=== PATIENT | male | born 1940 | race Caucasian/White ===

== ENCOUNTER → 2017-03-26 | Outpatient (CLI) | payer MEDICARE, BC ==
[~2017-03-26] MED LIST: FISH100020 PO; FLAX10002 PO; MONT10TA4 PO; MULT-65 PO; TAB-TAB PO
[2017-03-26 11:31] LABS: AUTOMATED NEUTROPHIL # 7.9 TH/MM3 (1.8-7.7); BASOPHIL # 0.4 TH/MM3 (0-0.2); BASOPHIL % 4.1 % (0.0-2.0); EOSINOPHIL # 0.2 TH/MM3 (0-0.4); EOSINOPHIL % 2.3 % (0.0-4.0); HEMATOCRIT 49.2 % (39.0-51.0); HEMOGLOBIN 16.2 GM/DL (13.0-17.0); LYMPH % 12.3 % (9.0-44.0); LYMPHOCYTE # 1.3 TH/MM3 (1.0-4.8); MEAN CELL VOLUME 92.2 FL (80.0-100.0); MEAN CORPUSCULAR HEMOGLOBIN 30.4 PG (27.0-34.0); MEAN PLATELET VOLUME 9.2 FL (7.0-11.0); MONO % 9.6 % (0.0-8.0); NEUT % 71.7 % (16.0-70.0); PLATELET COUNT 306 TH/MM3 (150-450); RED BLOOD COUNT 5.34 MIL/MM3 (4.50-5.90); RED CELL DISTRIBUTION WIDTH 13.1 % (11.6-17.2); WHITE BLOOD COUNT 10.8 TH/MM3 (4.0-11.0)
== END ==
LOC: PHPRE 10:16
PROVIDERS: ATTEND Ophthalmology
DX: Z01.812 Encounter for preprocedural laboratory examination (principal); H25.89 Other age-related cataract
CPT/HCPCS: 36415; 85025

== ENCOUNTER → 2017-04-02 | Day surgery (SDC) | payer MEDICARE, BC ==
--- NOTE | 2017-03-26 15:14 | MH ---
cc: [facility], NICOLASA BLACK DATE OF ADMISSION: 04/02/2017 ADMISSION DIAGNOSIS Cataract, right eye. HISTORY OF PRESENT ILLNESS This 76-year-old white male is coming through [facility] for the purpose of a lens extraction of the right eye with intraocular lens implant under local anesthesia. He has noted decreasing visual acuity interfering with his daily activities and elected to have the above procedure. He is referred for consideration by his retinal specialist, Dr. Vincent, who is following him for macular degeneration. PAST MEDICAL HISTORY The patient has a history of allergies, shortness of breath which may be asthma, COPD and bronchitis. PAST SURGICAL HISTORY 1. Tonsillectomy. 2. Tympanoplasty. 3. Splenectomy. 4. Hernia repair. 5. Left groin surgery. MEDICATIONS The daily medications include: 1. Multivitamins. 2. Prostate supplement. 3. Vision . 4. Fish oil. 5. Claritin p.r.n. 6. Theophylline, which was discontinued. 7. Singulair. ALLERGIES No known allergies. SOCIAL HISTORY Does not smoke, and rare to occasionally has a beer every few months. FAMILY HISTORY Noncontributory. REVIEW OF SYSTEMS HEAD: Patient denies severe headaches, dizziness or recent head injury. EARS: Patient denies hearing loss, ear pain, discharge or ringing in the ears. NOSE: The patient sometimes has nasal discharge due to postnasal drip from allergies. No obstruction or frequent colds. MOUTH AND THROAT: Patient denies soreness of the mouth or tongue, bleeding gums, trouble swallowing, changes in voice or sore throat. NECK: Patient denies neck pain or swelling, limitation of neck movement or neck injury. CARDIOPULMONARY SYSTEM: He has some shortness of breath on exertion, COPD with bronchitis. No chronic cough, sputum production, hemoptysis, chest pain, wheezing, palpitations or light-headedness. GI SYSTEM: Patient denies poor appetite, nausea, vomiting, abdominal pain, ulcers, hemorrhoids or change in bowel habits. SYSTEM: He has an enlarged prostate with urinary frequency of every 2-4 hours, and gets up at night frequently to urinate. The patient denies dysuria or change in urine color. NERVOUS SYSTEM: Patient denies convulsions, vertigo, stroke, numbness or weakness. PHYSICAL EXAMINATION VITAL SIGNS: Blood pressure 106/52, pulse 72, respirations 24. HEAD: Normocephalic, atraumatic. NOSE: Without rhinorrhea. THROAT: Clear. NECK: Supple. CHEST: Clear. HEART: Regular rhythm. ABDOMEN: Without tenderness. EXTREMITIES: Without edema. NEUROLOGIC: Within normal limits. MENTAL STATUS: Within normal limits. EYE EXAM: The patient's best-corrected visual acuity is 20/50 in the right eye and 20/30 -2 in the left. Visual cordoba are full to confrontation testing. Extraocular muscle exam reveals full versions with orthophoria at distance and near. Pupils are 3 mm, equal, round and reactive to light without afferent defect. Anterior segment examination reveals corneal arcus. There are nuclear sclerotic and posterior cortical cataract changes bilaterally. The right eye has central cortical cataract change. Intraocular pressure is 17 in the right eye and 15 in the left by applanation tonometry. Dilated fundus exam revealed sharp disks with cup-to-disk ratio of 0.3 bilaterally. There are soft drusen in the macula of each eye. A posterior vitreous detachment is present bilaterally with some asteroid-like floaters in the right vitreous. IMPRESSION 1. Bilateral cataracts, right greater than left. 2. Dry macular degeneration, intermediate stage. 3. Posterior vitreous detachment, both eyes. 4. Corneal arcus. PLAN Lens extraction of the right eye with intraocular lens implant under local anesthesia through [facility]. The patient has been cleared medically. He has been counseled as to the risks, benefits and alternatives and elected to proceed. I feel that cataract surgery will improve the quality of life and activities of daily living in this patient. MD ARMANDO Diaz/MARISA /2:43 PM /2:57 PM
[~2017-04-02] VITALS: Ht 172.7 cm; Wt 69.0 kg
[~2017-04-02] MED LIST changes: +ACETYLCHOLINE CHL OPHT SOLN 1:100 2 ML VIAL ONE; +CHLORHEXIDINE GLUCONATE 2 % 1 PACK (2 CLOTHS) TOPICAL PRN; +EPINEPHrine HCL (1:1000) 1 MG/ML VIAL ONE; +HYALURONIDASE/LIDOCAINE/BUPIVACAINE 5 ML SYR RIGHT EYE ONE; +INSULIN HUMAN REGULAR 1,000 UNITS/10 ML VIAL SQ PRN; +LACTATED RINGER'S 1000 ML IV PRN; +METOPROLOL TARTRATE 25 MG TAB PO PRN; +PILOCARPINE HCL 2% OPHT SOLN 15 ML BTL ONE; +POVIDONE IODINE 5% (ANTISEPSIS KIT) 4 APPLICATIONS EACH NARE PRN; +PROPARACAINE HCL 0.5% OPHT SOLN 15 ML BTL RIGHT EYE ONE; +PROPOFOL 200 MG/20 ML AMP ONE; +SODIUM CHLORID 0.9% 500 ML IV PRN; -TAB-TAB PO; +TOBRAMYCIN/DEXAMETHASONE OPTH OINT 3.5 GM TUBE ONE; +VISCOAT OPHT IRRIG SOLN 0.75 ML SYRINGE ONE
[2017-04-02 10:15] VITALS: PULSE 78
[2017-04-02] MEDS: DICLOFENAC SOD 0.1% OPHT SOLN 2.5 ML BTL RIGHT EYE SCH ×8 (10:17→10:32)
[2017-04-02] MEDS: GATIFLOXACIN 0.5% OPHT SOLN 2.5 ML BTL RIGHT EYE SCH ×8 (10:17→10:32)
[2017-04-02] MEDS: CYCLOPENTOLATE HCL 1% OPHT SOLN 2 ML BTL RIGHT EYE SCH ×8 (10:17→10:32)
[2017-04-02] MEDS: PHENYLEPHRINE HCL 2.5% OPTH SOLN 2 ML BTL RIGHT EYE SCH ×8 (10:17→10:32)
[2017-04-02] MEDS: TROPICAMIDE 1% OPHT SOLN 15 ML BTL RIGHT EYE SCH ×8 (10:17→10:32)
[2017-04-02 10:49] VITALS: PULSE 75
[2017-04-02 12:55] VITALS: TEMP 98.1
[2017-04-02 13:10] VITALS: BP 120/69; PULSE 78; RESP 16; O2SAT 99
--- NOTE | 2017-04-02 13:29 | MP ---
cc: NICOLASA ACOSTA DATE OF SURGERY: April 02, 2017 PREOPERATIVE DIAGNOSIS: Cataract right eye. POSTOPERATIVE DIAGNOSIS: Cataract right eye. OPERATION: Extracapsular cataract extraction with posterior chamber intraocular lens implant by phacoemulsification, right eye. SURGEON: Nicolasa Acosta M.D. ANESTHESIA: Local. COMPLICATIONS: None. INDICATIONS: See history and physical previously dictated. OPERATIVE PROCEDURE: The patient had adequate retrobulbar and eyelid blocks administered in the holding area and was brought to the operating room. The right eye was prepped and draped in the usual sterile ophthalmic manner. A lid speculum was inserted in the right eye. A 4-0 silk bridle suture was placed through the conjunctiva near the superior rectus muscle and it was tagged to the drape. A fornix-based conjunctival flap was prepared spanning approximately 5 mm in width. Hemostasis was obtained with wet-field cautery. A 3.5 mm groove was made 1 mm from the limbus and dissected up to the limbus in the form of a scleral pocket incision. A stab incision was then made at the 2 o'clock position. Viscoelastic was injected into the anterior chamber. The anterior chamber was entered with a 2.75 mm keratome through the scleral pocket incision. A 360 degree continuous curvilinear capsulorrhexis was then performed. Hydrodissection was utilized to divide the nucleus into inner and outer components and to separate the cortex from the capsule. Phacoemulsification was then utilized to remove the nucleus. The outer nuclear layer was removed with irrigation and aspiration and short bursts of ultrasound as necessary. The cortex was removed with the irrigation/aspiration handpiece. The posterior capsule was polished with the capsule polisher. Viscoelastic was injected into the capsular bag. The intraocular lens was inspected and found to be in good condition. The lens utilized was an Porfirio, model number SA60AT with a power of +19.5 diopters. The lens was inserted into the capsular bag. The viscoelastic in the anterior chamber was then removed with the irrigation-aspiration handpiece. Viscoelastic was also removed from beneath the intraocular lens. The anterior chamber was filled with Miochol-E through the stab incision and pressurized. The wound was checked for leaks at this pressure and normalized pressure and there were none. The 4-0 bridle suture was removed. The conjunctival flap was brought down over the wound and secured with cautery. Pilocarpine 2% eye drops were instilled topically. The lid speculum was removed. TobraDex ophthalmic ointment was applied. The eye was double patched and shielded. The patient tolerated the procedure well and left the Operating Room in satisfactory condition. MD ARMANDO Diaz/KVNG /1:09 PM /1:25 PM
== END | disposition home or self-care (01) ==
LOC: PHSDC 09:41
PROVIDERS: ATTEND Ophthalmology
DX: H25.811 Combined forms of age-related cataract, right eye (principal); H43.391 Other vitreous opacities, right eye; H43.813 Vitreous degeneration, bilateral; H35.319 Nonexudative age-related macular degeneration, unspecified eye; J44.9 Chronic obstructive pulmonary disease, unspecified
CPT/HCPCS: 00142; 66984; J0171; V2632

== ENCOUNTER 2017-06-26 13:19 | Inpatient (IN) | payer MEDICARE, BC ==
[2017-06-26] VITALS (8 sets, daily range): BP systolic 114–145; BP diastolic 59–89; PULSE 20–112; RESP 18–33; TEMP 98.3; O2SAT 95–98
[~2017-06-26] VITALS: Ht 172.7 cm; Wt 70.6 kg
[~2017-06-26 13:19] MED LIST changes: -ACETYLCHOLINE CHL OPHT SOLN 1:100 2 ML VIAL ONE; -CHLORHEXIDINE GLUCONATE 2 % 1 PACK (2 CLOTHS) TOPICAL PRN; -EPINEPHrine HCL (1:1000) 1 MG/ML VIAL ONE; -HYALURONIDASE/LIDOCAINE/BUPIVACAINE 5 ML SYR RIGHT EYE ONE; -INSULIN HUMAN REGULAR 1,000 UNITS/10 ML VIAL SQ PRN; -LACTATED RINGER'S 1000 ML IV PRN; -METOPROLOL TARTRATE 25 MG TAB PO PRN; -PILOCARPINE HCL 2% OPHT SOLN 15 ML BTL ONE; -POVIDONE IODINE 5% (ANTISEPSIS KIT) 4 APPLICATIONS EACH NARE PRN; -PROPARACAINE HCL 0.5% OPHT SOLN 15 ML BTL RIGHT EYE ONE; -PROPOFOL 200 MG/20 ML AMP ONE; -SODIUM CHLORID 0.9% 500 ML IV PRN; -TOBRAMYCIN/DEXAMETHASONE OPTH OINT 3.5 GM TUBE ONE; -VISCOAT OPHT IRRIG SOLN 0.75 ML SYRINGE ONE
--- NOTE | 2017-06-26 14:33 | RADRPT ---
EXAM DATE/TIME: 06/26/2017 14:00 [place] COMPARISON: No previous studies available for comparison. INDICATIONS : Shortness of breath with cough x3 weeks. MEDICAL HISTORY : None. SURGICAL HISTORY : None. ENCOUNTER: Initial ACUITY: 3 weeks PAIN SCORE: 0/10 LOCATION: Bilateral chest FINDINGS: Multiple primarily right-sided masslike parenchymal opacities. Cardiomediastinal contours are within normal limits. Bony thorax is intact. CONCLUSION: 1. Multiple primarily right-sided masslike parenchymal opacities. Differential considerations include metastatic disease versus atypical infection. Andriy Maier MD on June 26, 2017 at 14: 2. 28 Board Certified Radiologist. This report was verified electronically.
[2017-06-26 14:38] LABS: BASOPHIL % 0.1 % (0.0-2.0); HEMATOCRIT 49.9 % (39.0-51.0); HEMOGLOBIN 16.1 GM/DL (13.0-17.0); LYMPH % 3.3 % (9.0-44.0); LYMPHOCYTE # 1.1 TH/MM3 (1.0-4.8); MEAN CORPUSCULAR HGB CONC 32.3 % (32.0-36.0); MEAN PLATELET VOLUME 9.5 FL (7.0-11.0); MONO % 7.3 % (0.0-8.0); MONOCYTE # 2.3 TH/MM3 (0-0.9); NEUT % 89.3 % (16.0-70.0); PLATELET COUNT 388 TH/MM3 (150-450); RED BLOOD COUNT 5.36 MIL/MM3 (4.50-5.90); RED CELL DISTRIBUTION WIDTH 13.7 % (11.6-17.2); WHITE BLOOD COUNT 31.4 TH/MM3 (4.0-11.0)
[2017-06-26 14:45] LABS: INTERNATIONAL NORMALIZED RATIO 1.2 RATIO; PROTHROMBIN TIME - PATIENT 12.2 SEC (9.8-11.6)
[2017-06-26 15:04] LABS: BICARBONATE 30.4 MEQ/L (21.0-32.0); BLOOD UREA NITROGEN 17 MG/DL (7-18); CALCIUM 9.2 MG/DL (8.5-10.1); CHLORIDE 98 MEQ/L (98-107); CREATININE 0.79 MG/DL (0.60-1.30); GLOMERULAR FILTRATION RATE 95 ML/MIN (>89); GLUCOSE,RANDOM 110 MG/DL (74-106); MAGNESIUM 2.3 MG/DL (1.5-2.5); SODIUM (NA) 137 MEQ/L (136-145); TROPONIN I LESS THAN 0.02 NG/ML (0.02-0.05)
[2017-06-26 15:10] LABS: BANDS 1 % (0-6); LYMPHOCYTES 3 % (9-44); MONOCYTES 7 % (0-8); NEUTROPHIL # MANUAL DIFF 28.3 TH/MM3 (1.8-7.7); POLYS (SEG NEUTROPHILS) 89 % (16-70)
[2017-06-26 15:12] LABS: TOXIC GRANULATION 2+ (NORMAL); TOXIC VACUOLATION PRESENT (NONE SEEN)
[2017-06-26 15:13] LABS: HOWELL-JOLLY BODIES PRESENT (NONE SEEN)
[2017-06-26] MEDS: RESP: ALBUTEROL 2.5 MG/IPRATROPIUM 0.5 MG NEB (SCH) INH ×2 (16:41→21:00)
[2017-06-26] MEDS ORDERED: methylPREDNISolone SOD SUCC 125 MG/2 ML VIAL IV PUSH ONE (16:45)
[2017-06-26] MEDS ORDERED: AZITHROMYCIN INJ 500 MG in SODIUM CHLOR 0.9% 250 ML INJ 250 ML IV ONE (16:45)
[2017-06-26] MEDS ORDERED: SODIUM CHLORID 0.9% 500 ML INJ 500 ML IV ONE (16:45)
[2017-06-26] MEDS ORDERED: CEFEPIME INJ 2,000 MG in SODIUM CHLORIDE 0.9% INJ 100 ML IV ONE (16:45)
--- NOTE | 2017-06-26 17:02 | PD ---
HPI Chief Complaint: Respiratory Distress Time Seen by Provider: 16:20 Travel History International Travel<30 days: No Contact w/Intl Traveler<30days: No Traveled to known affect area: No History of Present Illness HPI 77-year-old male with a history of COPD, remote history of lymphoma the left shoulder, bronchitis presents emergency department with shortness of breath that started approximately 3 weeks ago. Patient states that last night it worsened and he decided to come to the emergency department today. States he did use his nebulizers morning but did not have significant relief. Patient denies fevers, chills. Denies nausea, vomiting or diarrhea. Denies chest pain or back pain. Patient denies history of congestive heart failure or other cardiac disease although he does follow Dr. Wang annually for "a checkup". States that he was diagnosed with flu 3 weeks ago by his primary care physician and given azithromycin but this has not helped him. Patient does not recall any COPD exacerbation previously. Says that he did previously received chemotherapy for his lymphoma but this was 4 years ago. He does not currently follow an oncologist. PFSH Past Medical History Cancer: Yes (LYMPHOMA (REMISSION)) Cardiovascular Problems: No Diabetes: No Endocrine: No Glaucoma: No Genitourinary: Yes (BPH) Hepatitis: No Hiatal Hernia: No Hypertension: No Immune Disorder: No Musculoskeletal: No Neurologic: No Psychiatric: No Respiratory: Yes (COPD) Thyroid Disease: No Past Surgical History Abdominal Surgery: Yes (INGUINAL HERNIA REPAIR;SPLENECTOMY) AICD: No Cardiac Surgery: No Ear Surgery: Yes (TYMPANOPLASTY) Endocrine Surgery: No Eye Surgery: No Genitourinary Surgery: No Joint Replacement: No Oral Surgery: Yes (TOOTH PULL--EXCESSIVE BLEEDING) Pacemaker: No Thoracic Surgery: No Social History Alcohol Use: Yes (RARELY) Tobacco Use: Yes (OCC CIGAR) Substance Use: No Allergies-Medications (Allergen,Severity, Reaction): Coded Allergies: No Known Allergies (Verified Allergy, Unknown, 04/02/17) Reported Meds & Prescriptions Reported Meds & Active Scripts Active Reported Multi-Vitamin Daily (Multiple Vitamin) 1 Tab Tab 1 Tab PO DAILY Fish Oil 1000 mg (Mayo-3 Fatty Acids) 300 Mg-1,000 Mg Cap 1 Cap PO DAILY Flax Seed Oil 1000 mg (Flaxseed (Linseed)) 1,000 Mg Cap 1,000-1,500 Mg PO DAILY Montelukast (Montelukast Sodium) 10 Mg Tab 10 Mg PO HS Review of Systems Except as stated in HPI: all other systems reviewed are Neg Physical Exam Narrative GENERAL: Well-developed well-nourished in moderate distress, 2 word dyspnea SKIN: Focused skin assessment warm/dry. HEAD: Atraumatic. Normocephalic. EYES: Pupils equal and round. No scleral icterus. No injection or drainage. ENT: No nasal bleeding or discharge. Mucous membranes pink and moist. NECK: Trachea midline. No JVD. CARDIOVASCULAR: Tachycardic. No murmur appreciated. RESPIRATORY: Accessory muscle use. Rhonchi and wheezes present GASTROINTESTINAL: Abdomen soft, non-tender, nondistended. Hepatic and splenic margins not palpable. MUSCULOSKELETAL: No obvious deformities. No clubbing. No cyanosis. No edema. NEUROLOGICAL: Awake and alert. No obvious cranial nerve deficits. Motor grossly within normal limits. Normal speech. PSYCHIATRIC: Appropriate mood and affect; insight and judgment normal. Data Data Last Documented VS Vital Signs Date Time Temp Pulse Resp B/P (MAP) Pulse Ox O2 Delivery O2 Flow Rate FiO2 06/26/17 16:39 112 33 145/89 (107) 96 Nasal Cannula 4.00 06/26/17 16:33 98 06/26/17 13:21 98.3 Orders Orders Complete Blood Count With Diff (06/26/17 13:38) Basic Metabolic Panel (Bmp) (06/26/17 13:38) Act Partial Throm Time (Ptt) (06/26/17 13:38) Prothrombin Time / Inr (Pt) (06/26/17 13:38) Magnesium (Mg) (06/26/17 13:38) Ckmb (Isoenzyme) Profile (06/26/17 13:38) Troponin I (06/26/17 13:38) Electrocardiogram (06/26/17 13:38) Chest, Pa & Lat (06/26/17 13:38) Cefepime Inj (Maxipime Inj) (06/26/17 16:45) Azithromycin Inj (Zithromax Inj) (06/26/17 16:45) B-Type Natriuretic Peptide (06/26/17 16:35) Blood Culture (06/26/17 16:35) Methylprednisolone So Succ Inj (Solumedr (06/26/17 16:45) Albuterol-Ipratropium Neb (Duoneb Neb) (06/26/17 16:45) Ct Thorax/ Chest W Iv Contrast (06/26/17 ) Lactic Acid (06/26/17 16:35) Sodium Chlorid 0.9% 500 Ml Inj (Ns 500 M (06/26/17 16:45) Arterial Blood Gas (Abg) (06/26/17 ) Admit Order (Ed Use Only) (06/26/17 17:07) Labs Laboratory Tests Test 06/26/17 14:12 06/26/17 16:40 06/26/17 16:45 White Blood Count 31.4 TH/MM3 Red Blood Count 5.36 MIL/MM3 Hemoglobin 16.1 GM/DL Hematocrit 49.9 % Mean Corpuscular Volume 93.0 FL Mean Corpuscular Hemoglobin 30.0 PG Mean Corpuscular Hemoglobin Concent 32.3 % Red Cell Distribution Width 13.7 % Platelet Count 388 TH/MM3 Mean Platelet Volume 9.5 FL Neutrophils (%) (Auto) 89.3 % Lymphocytes (%) (Auto) 3.3 % Monocytes (%) (Auto) 7.3 % Eosinophils (%) (Auto) 0.0 % Basophils (%) (Auto) 0.1 % Neutrophils # (Auto) 28.0 TH/MM3 Lymphocytes # (Auto) 1.1 TH/MM3 Monocytes # (Auto) 2.3 TH/MM3 Eosinophils # (Auto) 0.0 TH/MM3 Basophils # (Auto) 0.0 TH/MM3 CBC Comment AUTO DIFF Differential Total Cells Counted 100 Neutrophils % (Manual) 89 % Band Neutrophils % 1 % Lymphocytes % 3 % Monocytes % 7 % Neutrophils # (Manual) 28.3 TH/MM3 Differential Comment FINAL DIFF MANUAL Toxic Granulation 2+ Toxic Vacuolation PRESENT Platelet Estimate NORMAL Platelet Morphology Comment NORMAL Basophilic Stippling FAINT Perez[place] Bodies PRESENT Prothrombin Time 12.2 SEC Prothromb Time International Ratio 1.2 RATIO Activated Partial Thromboplast Time 28.8 SEC Blood Urea Nitrogen 17 MG/DL Creatinine 0.79 MG/DL Random Glucose 110 MG/DL Calcium Level 9.2 MG/DL Magnesium Level 2.3 MG/DL Sodium Level 137 MEQ/L Potassium Level 5.2 MEQ/L Chloride Level 98 MEQ/L Carbon Dioxide Level 30.4 MEQ/L Anion Gap 9 MEQ/L Estimat Glomerular Filtration Rate 95 ML/MIN Total Creatine Kinase 41 U/L Troponin I LESS THAN 0.02 NG/ML Lactic Acid Level 2.7 mmol/L B-Type Natriuretic Peptide 68 PG/ML MDM Medical Decision Making Medical Screen Exam Complete: Yes Emergency Medical Condition: Yes Differential Diagnosis COPD exacerbation, pneumonia, asthma exacerbation Narrative Course 77-year-old male with a history of COPD, remote history of lymphoma the left shoulder, bronchitis presents emergency department with shortness of breath that started approximately 3 weeks ago. Patient states that last night it worsened and he decided to come to the emergency department today. States he did use his nebulizers morning but did not have significant relief. Patient denies fevers, chills. Denies nausea, vomiting or diarrhea. Denies chest pain or back pain. Patient denies history of congestive heart failure or other cardiac disease although he does follow Dr. Wang annually for "a checkup". States that he was diagnosed with flu 3 weeks ago by his primary care physician and given azithromycin but this has not helped him. Patient does not recall any COPD exacerbation previously. Says that he did previously received chemotherapy for his lymphoma but this was 4 years ago. He does not currently follow an oncologist. Vital signs initially tachycardic with O2 saturations ranging from 89-95 on 4LPM O2 NC. Blood pressure is stable. Physical exam findings consistent with a 77-year-old male in acute respiratory distress. Respiratory therapy was called in to perform DuoNeb 3. Solu-Medrol 125 mg administered. If patient fails therapy, will initiate Bipap. EKG demonstrates sinus tachycardia. Patient does have leukocytosis at 31.4, mild hyperkalemia at 5.2. Initial cardiac enzymes negative. CBC & BMP Diagram 06/26/17 14:12 Calcium Level 9.2, Magnesium Level 2.3 Additional labs drawn include BNP, lactic and blood cultures. BNP 68, lactate 2.7. Blood cultures pending. CXR demonstrates multiple primarily right-sided opacities. This is concerning based off of his history of lymphoma. CT chest with IV contrast ordered for further characterization evaluation. Patient will be initiated on cefepime and azithromycin. IV fluids administered judiciously as he is a 77-year-old male possible cardiac involvement. I briefly discussed advanced directives with the patient and cousin and she states that he would like full therapy needed to include intubation and ventilator support. Patient will be admitted for pneumonia, sepsis, COPD exacerbation, hypokalemia. Pt appears to have improved from 2 word dyspnea to 4 word dyspnea after duonebs. There is a concern for worsening of his symptoms as he does have COPD, pneumonia, and concerning chest CT. Sputum culture, acid-fast stain, ordered. Respiratory precautions placed. I discussed this patient with my attending, Dr. Correa who agreed to plan. Patient will be admitted to Dr. Urena, CDU. Sepsis Criteria SIRS Criteria (2 or more): Heart rate over 90, RR > 20 or PaCO2 < 32, WBC > 22438, < 4000 or > 10% bands Sepsis Criteria (SIRS+source): Infect source susp/known Diagnosis Primary Impression: Pneumonia Qualified Codes: J18.9 - Pneumonia, unspecified organism Additional Impressions: COPD exacerbation Hyperkalemia Admitting Information Admitting Physician Requests: Admit Condition: Stable Sheyla Tamayo Jun 26, 2017 17:02
[2017-06-26] MEDS ORDERED: SODIUM CHLOR 0.9% 1000 ML INJ 1,000 ML IV SCH (17:30)
[2017-06-26] MEDS ORDERED: CHLORHEXIDINE GLUCONATE 2 % 1 PACK (2 CLOTHS) TOP PRN ×2 (17:30→20:00)
[2017-06-26] MEDS ORDERED: MISCELLANEOUS NURSING INFORMATION XX SCH ×2 (17:30→20:00)
--- NOTE | 2017-06-26 17:31 | PD ---
Physical Exam Date Seen by Provider: Jun 26, 2017 Time Seen by Provider: 16:00 Narrative I, Dr. Correa, have reviewed the advance practice practitioner's documentation and am in agreement, met with the patient face to face, made the diagnosis, and the medical decision making was done by me. *My assessment and Findings: Patient seen and evaluated with PA in the ER. He apparently has been having worsening respiratory symptoms over last few days. He's been running fevers. Came in and moderate respiratory distress with some wheezing. Initial evaluation was done by PA's in triage and workup had been initiated. When he was received in the ER, it was noted that workup showed a significant leukocytosis. Chest x-ray showing infiltrates especially bad in the right side, questionable multiple for pneumonia versus malignancy. IV antibiotics were initiated after blood cultures were drawn. Patient was initiated on site matter on nebulizers due to the wheezing in order to help alleviate shortness of breath although this is not helping significantly. At this point, plan would be to admit the patient for further treatment. Case was initially discussed with hospitalist service but considering the patient's underlying respiratory distress and significant leukocytosis and sepsis, it is agreed that patient may be a better candidate for the ICU. Case was discussed with Dr. Urena, yard switcher, for admission. We have also discussed the findings with patient's and patient and he states understanding. In addition, we have discussed CODE STATUS of the patient wants to be full code. Aggregate critical care time was 20 minutes. Time to perform other separately billable procedures was not included in the critical care time. My time did not include minutes spent treating any other patients simultaneously or on activities that did not directly contribute to the patient's treatment. The services I provided to this patient were to treat and/or prevent clinically significant deterioration that could result in: Worsening sepsis, respiratory arrest, I provided critical care services requiring my management, as noted below: Chart data review, documentation time, medication orders and management, vital sign assessments/reviewing monitor data, ordering and reviewing lab tests, ordering and interpreting/reviewing x-rays and diagnostic studies, care of the patient and discussion of the patient with the admitting physicians. Laboratory Tests Test 06/26/17 14:12 06/26/17 16:40 06/26/17 16:45 White Blood Count 31.4 TH/MM3 (4.0-11.0) Neutrophils (%) (Auto) 89.3 % (16.0-70.0) Lymphocytes (%) (Auto) 3.3 % (9.0-44.0) Neutrophils # (Auto) 28.0 TH/MM3 (1.8-7.7) Monocytes # (Auto) 2.3 TH/MM3 (0-0.9) Neutrophils % (Manual) 89 % (16-70) Lymphocytes % 3 % (9-44) Neutrophils # (Manual) 28.3 TH/MM3 (1.8-7.7) Toxic Granulation 2+ (NORMAL) Toxic Vacuolation PRESENT (NONE SEEN) Basophilic Stippling FAINT (NORMAL) Prothrombin Time 12.2 SEC (9.8-11.6) Random Glucose 110 MG/DL (74-106) Potassium Level 5.2 MEQ/L (3.5-5.1) Troponin I LESS THAN 0.02 NG/ML Lactic Acid Level 2.7 mmol/L (0.4-2.0) Last 24 hours Impressions Chest X-Ray 06/26/17 1338 Signed Impressions: Service Date/Time: Monday, June 26, 2017 14:00 - CONCLUSION: 1. Multiple primarily right-sided masslike parenchymal opacities. Differential considerations include metastatic disease versus atypical infection. Andriy Maier MD Data Data Last Documented VS Vital Signs Date Time Temp Pulse Resp B/P (MAP) Pulse Ox O2 Delivery O2 Flow Rate FiO2 06/26/17 16:39 112 33 145/89 (107) 96 Nasal Cannula 4.00 06/26/17 16:33 98 06/26/17 13:21 98.3 Orders Orders Complete Blood Count With Diff (06/26/17 13:38) Basic Metabolic Panel (Bmp) (06/26/17 13:38) Act Partial Throm Time (Ptt) (06/26/17 13:38) Prothrombin Time / Inr (Pt) (06/26/17 13:38) Magnesium (Mg) (06/26/17 13:38) Ckmb (Isoenzyme) Profile (06/26/17 13:38) Troponin I (06/26/17 13:38) Electrocardiogram (06/26/17 13:38) Chest, Pa & Lat (06/26/17 13:38) Cefepime Inj (Maxipime Inj) (06/26/17 16:45) Azithromycin Inj (Zithromax Inj) (06/26/17 16:45) B-Type Natriuretic Peptide (06/26/17 16:35) Blood Culture (06/26/17 16:35) Methylprednisolone So Succ Inj (Solumedr (06/26/17 16:45) Albuterol-Ipratropium Neb (Duoneb Neb) (06/26/17 16:45) Ct Thorax/ Chest W Iv Contrast (06/26/17 ) Lactic Acid (06/26/17 16:35) Sodium Chlorid 0.9% 500 Ml Inj (Ns 500 M (06/26/17 16:45) Arterial Blood Gas (Abg) (06/26/17 ) Admit Order (Ed Use Only) (06/26/17 17:07) Labs Laboratory Tests Test 06/26/17 14:12 06/26/17 16:40 06/26/17 16:45 White Blood Count 31.4 TH/MM3 Red Blood Count 5.36 MIL/MM3 Hemoglobin 16.1 GM/DL Hematocrit 49.9 % Mean Corpuscular Volume 93.0 FL Mean Corpuscular Hemoglobin 30.0 PG Mean Corpuscular Hemoglobin Concent 32.3 % Red Cell Distribution Width 13.7 % Platelet Count 388 TH/MM3 Mean Platelet Volume 9.5 FL Neutrophils (%) (Auto) 89.3 % Lymphocytes (%) (Auto) 3.3 % Monocytes (%) (Auto) 7.3 % Eosinophils (%) (Auto) 0.0 % Basophils (%) (Auto) 0.1 % Neutrophils # (Auto) 28.0 TH/MM3 Lymphocytes # (Auto) 1.1 TH/MM3 Monocytes # (Auto) 2.3 TH/MM3 Eosinophils # (Auto) 0.0 TH/MM3 Basophils # (Auto) 0.0 TH/MM3 CBC Comment AUTO DIFF Differential Total Cells Counted 100 Neutrophils % (Manual) 89 % Band Neutrophils % 1 % Lymphocytes % 3 % Monocytes % 7 % Neutrophils # (Manual) 28.3 TH/MM3 Differential Comment FINAL DIFF MANUAL Toxic Granulation 2+ Toxic Vacuolation PRESENT Platelet Estimate NORMAL Platelet Morphology Comment NORMAL Basophilic Stippling FAINT Perez-[place] Bodies PRESENT Prothrombin Time 12.2 SEC Prothromb Time International Ratio 1.2 RATIO Activated Partial Thromboplast Time 28.8 SEC Blood Urea Nitrogen 17 MG/DL Creatinine 0.79 MG/DL Random Glucose 110 MG/DL Calcium Level 9.2 MG/DL Magnesium Level 2.3 MG/DL Sodium Level 137 MEQ/L Potassium Level 5.2 MEQ/L Chloride Level 98 MEQ/L Carbon Dioxide Level 30.4 MEQ/L Anion Gap 9 MEQ/L Estimat Glomerular Filtration Rate 95 ML/MIN Total Creatine Kinase 41 U/L Troponin I LESS THAN 0.02 NG/ML Lactic Acid Level 2.7 mmol/L [facility] Medical Record Reviewed: Yes Supervised Visit with RYANNE: Yes Diagnosis Primary Impression: Pneumonia Qualified Codes: J18.9 - Pneumonia, unspecified organism Additional Impressions: COPD exacerbation Hyperkalemia Severe sepsis Admitting Information Admitting Physician Requests: Admit Condition: Stable Gabi Correa MD Jun 26, 2017 17:31
[2017-06-26] MEDS ORDERED: IOHEXOL 350 MG/ML 10 ML VIAL (for RAD DIAG) IVCONTRAST ONE (17:43)
[2017-06-26] MEDS ORDERED: Vancomycin Consult Pharmacy 1 EA OTHER SCH (17:45)
--- NOTE | 2017-06-26 17:57 | RADRPT ---
EXAM DATE/TIME: 06/26/2017 17:36 [facility] COMPARISON: No previous studies available for comparison. INDICATIONS : Shortness of breath. IV CONTRAST: 61 cc Omnipaque 350 (iohexol) IV RADIATION DOSE: 5.92 CTDIvol (mGy) MEDICAL HISTORY : Chronic obstructive pulmonary disease. SURGICAL HISTORY : Inguinal hernia repair. Splenectomy. ENCOUNTER: Initial ACUITY: 1 day PAIN SCALE: 0/10 LOCATION: Bilateral chest TECHNIQUE: Volumetric scanning of the chest was performed. Using automated exposure control and adjustment of t he mA and/or kV according to patient size, radiation dose was kept as low as reasonably achievable to obtain optimal diagnostic quality images. DICOM format image data is available electronically for review and comparison. Follow-up recommendations for detected pulmonary nodules are based at a minimum on nodule size and pa tient risk factors according to Fleischner Society Guidelines. FINDINGS: There is multifocal nodular and consolidative airspace disease predominantly in the right lung but al so involving the left lung to a lesser extent. A 2.9 cm area of consolidation in the right upper lobe on image #30 also has 2 small areas of cavitation. There is associated cylindrical bronchiectasis an d peribronchial thickening. Borderline enlarged mediastinal and hilar lymph nodes are present. There is no significant pleural or pericardial effusion. Mild coronary calcifications. No acute findings in the upper abdomen. CONCLUSION: 1. Multifocal nodular and consolidative airspace disease with some early cavitation and asymmetry, ri ght greater than left. There is associated distal airway disease, cylindrical bronchiectasis and sang bronchial thickening. Findings probably infectious in nature. Consider mycobacterial or fungal pneumo suzie. Kal Lowry MD on June 26, 2017 at 17:50 Board Certified Radiologist. This report was verified electronically.
[2017-06-26] MEDS: PIPERACIL-TAZO 4.5 GM PREMIX 100 ML IV SCH (19:09)
--- NOTE | 2017-06-26 19:54 | HHI.HP ---
[facility] Service Critical Care Medicine Primary Care Physician Tristan Molina, DO Admission Diagnosis Pneumonia, sepsis, COPD exacerbation Diagnosis: Travel History International Travel<30 Days: No Contact w/Intl Traveler <30 Da: No Traveled to Known Affected Are: No History of Present Illness 77-year-old male with a history of COPD, remote history of lymphoma now in remission 4 years, bronchitis presents with shortness of breath that started approximately 3 weeks ago. Patient states that last night it worsened and he decided to come to the emergency department today. States he did use his nebulizers this morning but did not have significant relief. He denies fevers, chills. Denies nausea, vomiting or diarrhea. Denies chest pain or back pain. He does not have a history of congestive heart failure or other cardiac disease although he does follow Dr. Wang annually for "a checkup". States that he was diagnosed with flu 3 weeks ago by his primary care physician and given azithromycin but this has not helped him. Patient does not recall any COPD exacerbation previously. Says that he did previously received chemotherapy for his lymphoma but this was 4 years ago. He does not currently follow an oncologist. Review of Systems Constitutional: COMPLAINS OF: Fatigue, Fever, Chills, Dizziness, DENIES: Diaphoretic episodes, Weight gain, Weight loss, Change in appetite, Night Sweats Endocrine: DENIES: Heat/cold intolerance, Polydipsia, Polyuria, Polyphagia Eyes: DENIES: Blurred vision, Diplopia, Eye inflammation, Eye pain, Vision loss , Photosensitivity, Double Vision Ears, nose, mouth, throat: DENIES: Tinnitus, Hearing loss, Vertigo, Nasal discharge, Oral lesions, Throat pain, Hoarseness, Ear Pain, Running Nose, Epistaxis, Sinus Pain, Toothache, Odynophagia Respiratory: COMPLAINS OF: Cough, Sputum production, Shortness of breath, DENIES: Apneas, Snoring, Wheezing, Hemoptysis Cardiovascular: DENIES: Chest pain, Palpitations, Syncope, Dyspnea on Exertion , PND, Lower Extremity Edema, Orthopnea, Claudication Gastrointestinal: DENIES: Abdominal pain, Black stools, Bloody stools, Constipation, Diarrhea, Nausea, Vomiting, Difficulty Swallowing, Anorexia Genitourinary: DENIES: Sexual dysfunction, Urinary frequency, Urinary incontinence, Urgency, Hematuria, Dysuria, Nocturia, Penile Discharge, Testicular Pain, Testicular Swelling Musculoskeletal: DENIES: Joint pain, Muscle aches, Stiffness, Joint Swelling, Back pain, Neck pain Integumentary: DENIES: Abnormal pigmentation, Nail changes, Pruritus, Rash Hematologic/lymphatic: DENIES: Bruising, Lymphadenopathy Immunologic/allergic: DENIES: Eczema, Urticaria Neurologic: DENIES: Abnormal gait, Headache, Localized weakness, Paresthesias, Seizures, Speech Problems, Tremor, Poor Balance Psychiatric: DENIES: Anxiety, Confusion, Mood changes, Depression, Hallucinations, Agitation, Suicidal Ideation, Homicidal Ideation, Delusions Past Family Social History Allergies: Coded Allergies: No Known Allergies (Verified Allergy, Unknown, 04/02/17) Past Medical History Lymphoma, status post chemotherapy 4 years ago COPD Chronic bronchitis Past Surgical History Tonsillectomy Tympanoplasty Splenectomy Inguinal Hernia repair Reported Medications Reported Meds & Active Scripts Active Reported Multi-Vitamin Daily (Multiple Vitamin) 1 Tab Tab 1 Tab PO DAILY Fish Oil 1000 mg ([place]-3 Fatty Acids) 300 Mg-1,000 Mg Cap 1 Cap PO DAILY Flax Seed Oil 1000 mg (Flaxseed (Linseed)) 1,000 Mg Cap 1,000-1,500 Mg PO DAILY Montelukast (Montelukast Sodium) 10 Mg Tab 10 Mg PO HS Active Ordered Medications Current Medications Medications (Trade) Dose Ordered Sig/Archie Route PRN Reason Start Time Stop Time Status Last Admin Dose Admin Chlorhexidine Gluconate (Peridex 0.12% Liq) 15 ml BID@08,20 MT 06/26/17 20:00 06/26/17 23:13 Enoxaparin Sodium (Lovenox Inj) 40 mg Q24H SQ 06/26/17 21:00 06/26/17 23:12 Methylprednisolone Sodium Succinate (SoluMEDROL INJ) 60 mg Q8HR IV PUSH 06/26/17 22:00 06/26/17 23:13 Piperacillin Sod/ Tazobactam Sod 100 ml @ 200 mls/hr Q6H IV 06/26/17 18:00 06/26/17 19:09 Pharmacy Profile Note 0 ml @ 0 mls/hr UNSCH OTHER 06/26/17 17:45 Azithromycin 500 mg/Sodium Chloride 250 ml @ 250 mls/hr Q24H IV 06/27/17 17:00 Montelukast Sodium (Singulair) 10 mg HS PO 06/26/17 21:00 06/26/17 23:12 Multivitamins (Theragran) 1 tab DAILY PO 06/27/17 09:00 Sodium Chloride 1,000 ml @ 84 mls/hr [id number] IV 06/26/17 19:47 06/26/17 21:57 Sodium Chloride (NS Flush) 2 ml UNSCH PRN IV FLUSH FLUSH AFTER USING IV ACCESS 06/26/17 20:00 Sodium Chloride (NS Flush) 2 ml BID IV FLUSH 06/26/17 21:00 06/26/17 23:13 Acetaminophen (Tylenol) 650 mg Q6H PRN PO PAIN 1-10 AND/OR FEVER >101F 06/26/17 20:00 Famotidine (Pepcid Inj) 20 mg Q12HR IV PUSH 06/26/17 21:00 06/26/17 23:13 Ondansetron HCl (Zofran Inj) 4 mg Q6H PRN IV PUSH NAUSEA OR VOMITING 06/26/17 20:00 Temazepam (Restoril) 15 mg HS PRN PO INSOMNIA 06/26/17 20:00 Albuterol/ Ipratropium (Duoneb Neb) 1 ampule Q6HR NEB INH 06/26/17 22:00 06/26/17 21:00 Albuterol/ Ipratropium (Duoneb Neb) 1 ampule Q2HR NEB PRN INH WHEEZING 06/26/17 20:00 Miscellaneous Information 1 [id number] XX 06/26/17 20:00 Chlorhexidine Gluconate (Chlorhexidine 2% Cloth) 3 pack Taper DAILY@04 TOP 06/27/17 04:00 06/23/18 03:59 Chlorhexidine Gluconate (Chlorhexidine 2% Cloth) 3 pack UNSCH PRN TOP HYGIENIC CARE 06/26/17 20:00 Senna/Docusate Sodium (Cortney-Colace) 1 tab BID PO 06/26/17 21:00 06/26/17 23:12 Magnesium Hydroxide (Milk Of Magnesia Liq) 30 ml Q12H PRN PO Mild constipation 06/26/17 20:00 Sennosides (Senokot) 17.2 mg Q12H PRN PO Moderate constipation 06/26/17 20:00 Bisacodyl (Dulcolax Supp) 10 mg DAILY PRN RECTAL SEVERE CONSITIPATION 06/26/17 20:00 Lactulose (Lactulose Liq) 30 ml DAILY PRN PO SEVERE CONSITIPATION 06/26/17 20:00 Vancomycin/Sodium Chloride 200 ml @ 200 mls/hr Q12H IV 06/27/17 08:00 Miscellaneous Information SPECIFIC LAB TO BE DRAWN:[facility] DATE TO BE DRFrances ONCE ONCE .XX 06/28/17 07:45 06/28/17 07:46 Family History No family history significant of malignancy Social History Lifelong nonsmoker, no alcohol or illicit drug abuse Physical Exam Vital Signs Vital Signs Date Time Temp Pulse Resp B/P (MAP) Pulse Ox O2 Delivery O2 Flow Rate FiO2 06/26/17 19:15 18 06/26/17 17:52 109 21 124/63 (83) 97 Nasal Cannula 3.00 06/26/17 16:39 112 33 145/89 (107) 96 Nasal Cannula 4.00 06/26/17 16:36 Nasal Cannula 4.00 06/26/17 16:33 98 Nasal Cannula 4.00 98 06/26/17 13:21 98.3 112 18 130/67 (88) 95 Physical Exam GENERAL: Well-developed well-nourished in moderate distress SKIN: Focused skin assessment warm/dry. HEAD: Atraumatic. Normocephalic. EYES: Pupils equal and round. No scleral icterus. No injection or drainage. ENT: No nasal bleeding or discharge. Mucous membranes pink and moist. NECK: Trachea midline. No JVD. CARDIOVASCULAR: Tachycardic. No murmur appreciated. RESPIRATORY: Accessory muscle use. Rhonchi and wheezes present GASTROINTESTINAL: Abdomen soft, non-tender, nondistended. Hepatic and splenic margins not palpable. MUSCULOSKELETAL: No obvious deformities. No clubbing. No cyanosis. No edema. NEUROLOGICAL: Awake and alert. No obvious cranial nerve deficits. Motor grossly within normal limits. Normal speech. Laboratory Laboratory Tests Test 06/26/17 14:12 06/26/17 16:40 06/26/17 16:45 06/26/17 17:17 White Blood Count 31.4 Red Blood Count 5.36 Hemoglobin 16.1 Hematocrit 49.9 Mean Corpuscular Volume 93.0 Mean Corpuscular Hemoglobin 30.0 Mean Corpuscular Hemoglobin Concent 32.3 Red Cell Distribution Width 13.7 Platelet Count 388 Mean Platelet Volume 9.5 Neutrophils (%) (Auto) 89.3 Lymphocytes (%) (Auto) 3.3 Monocytes (%) (Auto) 7.3 Eosinophils (%) (Auto) 0.0 Basophils (%) (Auto) 0.1 Neutrophils # (Auto) 28.0 Lymphocytes # (Auto) 1.1 Monocytes # (Auto) 2.3 Eosinophils # (Auto) 0.0 Basophils # (Auto) 0.0 CBC Comment AUTO DIFF Differential Total Cells Counted 100 Neutrophils % (Manual) 89 Band Neutrophils % 1 Lymphocytes % 3 Monocytes % 7 Neutrophils # (Manual) 28.3 Differential Comment FINAL DIFF MANUAL Toxic Granulation 2+ Toxic Vacuolation PRESENT Platelet Estimate NORMAL Platelet Morphology Comment NORMAL Basophilic Stippling FAINT Perez[place] Bodies PRESENT Prothrombin Time 12.2 Prothromb Time International Ratio 1.2 Activated Partial Thromboplast Time 28.8 Blood Urea Nitrogen 17 Creatinine 0.79 Random Glucose 110 Calcium Level 9.2 Magnesium Level 2.3 Sodium Level 137 Potassium Level 5.2 Chloride Level 98 Carbon Dioxide Level 30.4 Anion Gap 9 Estimat Glomerular Filtration Rate 95 Total Creatine Kinase 41 Troponin I LESS THAN 0.02 Lactic Acid Level 2.7 B-Type Natriuretic Peptide 68 Blood Gas Puncture Site RT RADIAL Blood Gas Patient Temperature 98.6 Blood Gas HCO3 24 Blood Gas Base Excess 1.0 Blood Gas Oxygen Saturation 93 Arterial Blood pH 7.48 Arterial Blood Partial Pressure CO2 33 Arterial Blood Partial Pressure O2 72 Arterial Blood Oxygen Content 19.5 Arterial Blood Carboxyhemoglobin 1.2 Arterial Blood Methemoglobin 0.9 Blood Gas Hemoglobin 15.0 Oxygen Delivery Device NASAL CANNULA Blood Gas Liter Flow 4 Date/Time Source Procedure Growth Status 06/26/17 16:40 Blood Peripheral Aerobic Blood Culture Pending Received 06/26/17 16:40 Blood Peripheral Anaerobic Blood Culture Pending Received Result Diagram: 06/26/17 1412 06/26/17 1412 Imaging Last 24 hours Impressions Chest X-Ray 06/26/17 1338 Signed Impressions: Service Date/Time: Monday, June 26, 2017 14:00 - CONCLUSION: 1. Multiple primarily right-sided masslike parenchymal opacities. Differential considerations include metastatic disease versus atypical infection. Andriy Maier MD Septic Shock Reassessment Septic shock perfusion: reassessment completed Caprini VTE Risk Assessment Caprini VTE Risk Assessment: Mod/High Risk (score >= 2) Caprini Risk Assessment Model Point Value = 1 Point Value = 2 Point Value = 3 Point Value = 5 Age 41-60 Minor surgery BMI > 25 kg/m2 Swollen legs Varicose veins or History of unexplained or recurrent spontaneous Oral contraceptives or hormone replacement Sepsis (< 1 month) Serious lung disease, including pneumonia (< 1 month) Abnormal pulmonary function Acute myocardial infarction Congestive heart failure (< 1 month) History of inflammatory bowel disease Medical patient at bed rest Age 61-74 Arthroscopic surgery Major open surgery (> 45 min) Laparoscopic surgery (> 45 min) Malignancy Confined to bed (> 72 hours) Immobilizing plaster cast Central venous access Age >= 75 History of VTE Family history of VTE Factor V Leiden Prothrombin [id number] Lupus anticoagulant Anticardiolipin antibodies Elevated serum homocysteine Heparin-induced thrombocytopenia Other congenital or acquired thrombophilia Stroke (< 1 month) Elective arthroplasty Hip, pelvis, or leg fracture Acute spinal cord injury (< 1 month) Prophylaxis Regimen Total Risk Factor Score Risk Level Prophylaxis Regimen 0-1 Low Early ambulation 2 Moderate Order ONE of the following: *Sequential Compression Device (SCD) *Heparin 5000 units SQ BID 3-4 Higher Order ONE of the following medications: *Heparin 5000 units SQ TID *Enoxaparin/Lovenox 40 mg SQ daily (WT < 150 kg, CrCl > 30 mL/min) *Enoxaparin/Lovenox 30 mg SQ daily (WT < 150 kg, CrCl > 10-29 mL/min) *Enoxaparin/Lovenox 30 mg SQ BID (WT < 150 kg, CrCl > 30 mL/min) AND/OR *Sequential Compression Device (SCD) 5 or more Highest Order ONE of the following medications: *Heparin 5000 units SQ TID (Preferred with Epidurals) *Enoxaparin/Lovenox 40 mg SQ daily (WT < 150 kg, CrCl > 30 mL/min) *Enoxaparin/Lovenox 30 mg SQ daily (WT < 150 kg, CrCl > 10-29 mL/min) *Enoxaparin/Lovenox 30 mg SQ BID (WT < 150 kg, CrCl > 30 mL/min) AND *Sequential Compression Device (SCD) Assessment and Plan Assessment and Plan Respiratory failure - Atypical pneumonia - Azithromycin/Zosyn - Sputum culture, blood culture - Infectious disease consultation for atypical pneumonia with cavitary lesions - No history of hemoptysis, or contact with a TB - DuoNeb scheduled and when necessary COPD - DuoNeb scheduled and when necessary - Montelukast Sodium (Singulair) 10 mg HS PO - IV steroids Lymphoma - Supportive care DVT GI prophylaxis - Teds SCDs - Lovenox - Pepcid Critical Care: The total critical care time was 35 minutes. Time to perform other separately billable procedures was not included in the critical care time. Temo Baumann MD Jun 26, 2017 19:54
[2017-06-26] MEDS ORDERED: MAGNESIUM HYDROXIDE SUSP 30 ML CUP PO PRN (20:00)
[2017-06-26] MEDS ORDERED: TEMAZEPAM 15 MG CAP PO PRN (20:00)
[2017-06-26] MEDS ORDERED: SODIUM CHLORIDE 0.9% FLUSH 10 ML FLUSH IV FLUSH PRN (20:00)
[2017-06-26] MEDS ORDERED: SENNOSIDES 8.6 MG TAB PO PRN (20:00)
[2017-06-26] MEDS ORDERED: ENOXAPARIN SODIUM 40 MG/0.4 ML SYRINGE SQ SCH (20:00)
[2017-06-26] MEDS ORDERED: ACETAMINOPHEN 325 MG TAB PO PRN (20:00)
[2017-06-26] MEDS ORDERED: RESP: ALBUTEROL 2.5 MG/IPRATROPIUM 0.5 MG NEB (SCH) NEB (20:00)
[2017-06-26] MEDS ORDERED: LACTULOSE SYRUP 20 GM/30 ML CUP PO PRN (20:00)
[2017-06-26] MEDS ORDERED: BISACODYL 10 MG SUPP RECTAL PRN (20:00)
[2017-06-26] MEDS ORDERED: PIPERACIL-TAZO 4.5 GM PREMIX 100 ML IV SCH (20:00)
[2017-06-26] MEDS ORDERED: ONDANSETRON HCL 4 MG/2 ML VIAL IV PUSH PRN (20:00)
[2017-06-26] MEDS ORDERED: VANCOMYCIN 1 GM/200 ML INJ 200 ML IV ONE (20:00)
[2017-06-26] MEDS ORDERED: FAMOTIDINE 20 MG/2 ML VIAL IV PUSH SCH (21:00)
--- NOTE | 2017-06-26 21:33 | EKG ---
Date Performed: 06/26/2017 Time Performed: 14:17:54 PTAGE: 77 years EKG: SINUS TACHYCARDIA NONSPECIFIC T-WAVE ABNORMALITY ABNORMAL RHYTHM ECG PREVIOUS TRACING : 01/21/2009 11.12 Since previous tracing rate fater and T wave changes presen t DOCTOR: Marilynn Patel Interpretating Date/Time 06/26/2017 21:33:12
[2017-06-26] MEDS: SODIUM CHLOR 0.9% 1000 ML INJ 1,000 ML IV SCH (21:57)
[2017-06-26] MEDS: MONTELUKAST SODIUM 10 MG TAB PO SCH (23:12)
[2017-06-26] MEDS: DOCUSATE SODIUM 50 MG/SENNA 8.6 MG TAB PO SCH (23:12)
[2017-06-26] MEDS: ENOXAPARIN SODIUM 40 MG/0.4 ML SYRINGE SQ SCH (23:12)
[2017-06-26] MEDS: CHLORHEXIDINE 0.12% (ORAL KIT) 15 ML CUP MT SCH (23:13)
[2017-06-26] MEDS: FAMOTIDINE 20 MG/2 ML VIAL IV PUSH SCH (23:13)
[2017-06-26] MEDS: SODIUM CHLORIDE 0.9% FLUSH 10 ML FLUSH IV FLUSH SCH (23:13)
[2017-06-26] MEDS: methylPREDNISolone SOD SUCC 125 MG/2 ML VIAL IV PUSH SCH (23:13)
[2017-06-27] VITALS (14 sets, daily range): BP systolic 107–123; BP diastolic 60–73; PULSE 58–84; RESP 14–22; TEMP 98–98.9; O2SAT 93–100
[2017-06-27] MEDS: RESP: ALBUTEROL 2.5 MG/IPRATROPIUM 0.5 MG NEB (SCH) INH ×4 (02:56→21:10)
[2017-06-27] MEDS: CHLORHEXIDINE GLUCONATE 2 % 1 PACK (2 CLOTHS) TOP SCH (04:00)
[2017-06-27] MEDS ORDERED: CHLORHEXIDINE GLUCONATE 2 % 1 PACK (2 CLOTHS) TOP SCH (04:00)
--- NOTE | 2017-06-27 04:32 | RADRPT ---
EXAM DATE/TIME: 06/27/2017 04:21 [facility] COMPARISON: CT THORAX W CONTRAST, June 26, 2017, 17:36. CHEST PA & LAT, June 26, 2017, 14:00. INDICATIONS : Short of breath. MEDICAL HISTORY : None. SURGICAL HISTORY : None. ENCOUNTER: Subsequent ACUITY: 2 days PAIN SCORE: 0/10 LOCATION: Bilateral chest FINDINGS: Persistent multifocal right lung opacities, some of which were cavitary on CT. There is an increasin g size opacity at the right lung base. Left lung is clear. The heart is normal size. No evidence o f pneumothorax. CONCLUSION: Persistent multifocal right lung opacities with one in the lower lung increased in size. Brock James MD on June 27, 2017 at 4:29 Board Certified Radiologist. This report was verified electronically.
[2017-06-27 05:42] LABS: AUTOMATED NEUTROPHIL # 27.4 TH/MM3 (1.8-7.7); BASOPHIL % 0.1 % (0.0-2.0); HEMATOCRIT 40.5 % (39.0-51.0); HEMOGLOBIN 13.6 GM/DL (13.0-17.0); LYMPH % 1.2 % (9.0-44.0); LYMPHOCYTE # 0.3 TH/MM3 (1.0-4.8); MEAN CELL VOLUME 92.4 FL (80.0-100.0); MEAN CORPUSCULAR HGB CONC 33.5 % (32.0-36.0); MEAN PLATELET VOLUME 9.4 FL (7.0-11.0); MONO % 1.1 % (0.0-8.0); MONOCYTE # 0.3 TH/MM3 (0-0.9); NEUT % 97.6 % (16.0-70.0); PLATELET COUNT 333 TH/MM3 (150-450); RED BLOOD COUNT 4.39 MIL/MM3 (4.50-5.90); RED CELL DISTRIBUTION WIDTH 13.5 % (11.6-17.2); WHITE BLOOD COUNT 28.1 TH/MM3 (4.0-11.0)
[2017-06-27 05:59] LABS: INTERNATIONAL NORMALIZED RATIO 1.3 RATIO; PROTHROMBIN TIME - PATIENT 13.1 SEC (9.8-11.6)
[2017-06-27] MEDS: methylPREDNISolone SOD SUCC 125 MG/2 ML VIAL IV PUSH SCH ×3 (06:02→21:45)
[2017-06-27] MEDS: PIPERACIL-TAZO 4.5 GM PREMIX 100 ML IV SCH ×4 (06:02→18:36)
[2017-06-27 06:20] LABS: ALBUMIN 1.9 GM/DL (3.4-5.0); ALKALINE PHOSPHATASE 106 U/L (45-117); ALT (GPT) 33 U/L (12-78); AST (GOT) 17 U/L (15-37); BICARBONATE 28.2 MEQ/L (21.0-32.0); BLOOD UREA NITROGEN 15 MG/DL (7-18); CALCIUM 8.5 MG/DL (8.5-10.1); CHLORIDE 104 MEQ/L (98-107); CREATININE 0.51 MG/DL (0.60-1.30); GLOMERULAR FILTRATION RATE 157 ML/MIN (>89); GLUCOSE,RANDOM 137 MG/DL (74-106); MAGNESIUM 2.4 MG/DL (1.5-2.5); PHOSPHORUS 2.8 MG/DL (2.5-4.9); SODIUM (NA) 140 MEQ/L (136-145); TOTAL BILIRUBIN ADULT 0.8 MG/DL (0.2-1.0); TOTAL PROTEIN 5.6 GM/DL (6.4-8.2)
[2017-06-27] MEDS: SODIUM CHLOR 0.9% 1000 ML INJ 1,000 ML IV SCH (07:42)
[2017-06-27] MEDS ORDERED: VANCOMYCIN 1 GM/200 ML PREMIX IV SCH (08:00)
[2017-06-27] MEDS: CHLORHEXIDINE 0.12% (ORAL KIT) 15 ML CUP MT SCH ×2 (08:00→20:00)
[2017-06-27] MEDS: MULTIVITAMIN TAB PO SCH (08:06)
[2017-06-27] MEDS: SODIUM CHLORIDE 0.9% FLUSH 10 ML FLUSH IV FLUSH SCH ×2 (08:06→21:00)
[2017-06-27] MEDS: DOCUSATE SODIUM 50 MG/SENNA 8.6 MG TAB PO SCH ×2 (08:06→21:46)
[2017-06-27] MEDS: FAMOTIDINE 20 MG/2 ML VIAL IV PUSH SCH ×2 (08:06→21:46)
[2017-06-27] MEDS ORDERED: NON-FORMULARY DRUG (Omega-3 Fatty Acids (Fish Oil 1000 mg) 1 CAP) PO SCH (09:00)
--- NOTE | 2017-06-27 13:03 | PD.ID.CON ---
History of Present Illness Service ID Consult Requested By Reason for Consult Evaluation and Mment of cavitary pneumonia. Primary Care Physician Tristan Molina DO Diagnoses: History of Present Illness is a 77 y/o CM with PMHx of Lymphoma in remission for last 4 years, COPD , chronic pipe smoker 20 yrs. 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 He was posted as part of [employer] in [facility], [place] and [facility]. No prior known exposure to TB. With this back ground patient reports h/o shortness of breath that started approximately 3 weeks ago. Due to worsening shortness of breath patient presented to the ED at [facility] at the direction of his repair service dispatcher . He states he did use his nebulizers on morning of admission without any significant relief. He denies fevers, chills. Denies nausea, vomiting or diarrhea. Denies chest pain or back pain. Patient reports he was diagnosed with flu 3 weeks ago by his primary care physician and given azithromycin but this has not helped him. Patient does not recall any COPD exacerbation previously. Says that he did previously received chemotherapy for his lymphoma but this was 4 years ago. He does not currently follow an oncologist but in the past has seen . Patient also reports has given him nebs and levaquin in clinic but no improvement in symptoms. He notes he has had a small pin sized cavity on CXR that was followed by . Patients last CT Chest was 6 years back and it was normal with no mention of cavities per patient. I attempted to reach will try again. Pertinent positives and negatives: 10 pound intentional weight loss in last 1 month. Decreased appetite. Cough with expectoration, no hemoptysis. ID consulted for evaluation and Mment of cavitary pneumonia. Review of Systems Constitutional: COMPLAINS OF: Weight loss, Change in appetite, DENIES: Diaphoretic episodes, Fatigue, Fever, Weight gain, Chills, Dizziness, Night Sweats Endocrine: DENIES: Heat/cold intolerance, Polydipsia, Polyuria, Polyphagia Eyes: DENIES: Blurred vision, Diplopia, Eye inflammation, Eye pain, Vision loss , Photosensitivity, Double Vision Ears, nose, mouth, throat: DENIES: Tinnitus, Hearing loss, Vertigo, Nasal discharge, Oral lesions, Throat pain, Hoarseness, Ear Pain, Running Nose, Epistaxis, Sinus Pain, Toothache, Odynophagia Respiratory: COMPLAINS OF: Cough, Sputum production, Shortness of breath, DENIES: Apneas, Snoring, Wheezing, Hemoptysis Cardiovascular: DENIES: Chest pain, Palpitations, Syncope, Dyspnea on Exertion , PND, Lower Extremity Edema, Orthopnea, Claudication Gastrointestinal: DENIES: Abdominal pain, Black stools, Bloody stools, Constipation, Diarrhea, Nausea, Vomiting, Difficulty Swallowing, Anorexia Genitourinary: DENIES: Sexual dysfunction, Urinary frequency, Urinary incontinence, Urgency, Hematuria, Dysuria, Nocturia, Penile Discharge, Testicular Pain, Testicular Swelling Musculoskeletal: DENIES: Joint pain, Muscle aches, Stiffness, Joint Swelling, Back pain, Neck pain Integumentary: DENIES: Abnormal pigmentation, Nail changes, Pruritus, Rash Hematologic/lymphatic: DENIES: Bruising, Lymphadenopathy Immunologic/allergic: DENIES: Eczema, Urticaria Neurologic: DENIES: Abnormal gait, Headache, Localized weakness, Paresthesias, Seizures, Speech Problems, Tremor, Poor Balance Psychiatric: DENIES: Anxiety, Confusion, Mood changes, Depression, Hallucinations, Agitation, Suicidal Ideation, Homicidal Ideation, Delusions Except as stated in HPI: all other systems reviewed are Neg Past Family Social History Allergies: Coded Allergies: No Known Allergies (Verified Allergy, Unknown, 04/02/17) Past Medical History Lymphoma, status post chemotherapy 4 years ago COPD Chronic bronchitis Past Surgical History Tonsillectomy Tympanoplasty Splenectomy Inguinal Hernia repair Reported Medications Reported Meds & Active Scripts Active Reported Multi-Vitamin Daily (Multiple Vitamin) 1 Tab Tab 1 Tab PO DAILY Fish Oil 1000 mg ([place]-3 Fatty Acids) 300 Mg-1,000 Mg Cap 1 Cap PO DAILY Flax Seed Oil 1000 mg (Flaxseed (Linseed)) 1,000 Mg Cap 1,000-1,500 Mg PO DAILY Montelukast (Montelukast Sodium) 10 Mg Tab 10 Mg PO HS Active Ordered Medications Current Medications Medications (Trade) Dose Ordered Sig/Archie Route Start Time Stop Time Status Last Admin (Peridex 0.12% Liq) 15 ml BID@08,20 MT 06/26/17 20:00 06/26/17 23:13 (Lovenox Inj) 40 mg Q24H SQ 06/26/17 21:00 06/26/17 23:12 (SoluMEDROL INJ) 60 mg Q8HR IV PUSH 06/26/17 22:00 06/27/17 12:47 Piperacillin Sod/ Tazobactam Sod 100 ml @ 200 mls/hr Q6H IV 06/26/17 18:00 06/27/17 12:47 Pharmacy Profile Note 0 ml @ 0 mls/hr UNSCH OTHER 06/26/17 17:45 Azithromycin 500 mg/Sodium Chloride 250 ml @ 250 mls/hr Q24H IV 06/27/17 17:00 (Singulair) 10 mg HS PO 06/26/17 21:00 06/26/17 23:12 (Theragran) 1 tab DAILY PO 06/27/17 09:00 06/27/17 08:06 Sodium Chloride 1,000 ml @ 84 mls/hr [id number] IV 06/26/17 19:47 06/27/17 07:42 (NS Flush) 2 ml UNSCH PRN IV FLUSH 06/26/17 20:00 (NS Flush) 2 ml BID IV FLUSH 06/26/17 21:00 06/27/17 08:06 (Tylenol) 650 mg Q6H PRN PO 06/26/17 20:00 (Pepcid Inj) 20 mg Q12HR IV PUSH 06/26/17 21:00 06/27/17 08:06 (Zofran Inj) 4 mg Q6H PRN IV PUSH 06/26/17 20:00 (Restoril) 15 mg HS PRN PO 06/26/17 20:00 (Duoneb Neb) 1 ampule Q6HR NEB INH 06/26/17 22:00 06/27/17 09:07 (Duoneb Neb) 1 ampule Q2HR NEB PRN INH 06/26/17 20:00 Miscellaneous Information 1 [id number] XX 06/26/17 20:00 (Chlorhexidine 2% Cloth) 3 pack Taper DAILY@04 TOP 06/27/17 04:00 06/23/18 03:59 (Chlorhexidine 2% Cloth) 3 pack UNSCH PRN TOP 06/26/17 20:00 (Cortney-Colace) 1 tab BID PO 06/26/17 21:00 06/27/17 08:06 (Milk Of Magnesia Liq) 30 ml Q12H PRN PO 06/26/17 20:00 (Senokot) 17.2 mg Q12H PRN PO 06/26/17 20:00 (Dulcolax Supp) 10 mg DAILY PRN RECTAL 06/26/17 20:00 (Lactulose Liq) 30 ml DAILY PRN PO 06/26/17 20:00 Vancomycin HCl 1250 mg/Sodium Chloride 262.5 ml @ 250 mls/hr Q12H IV 06/27/17 15:00 Miscellaneous Information SPECIFIC LAB TO BE DRAWN:VANCOMYCIN TROUGH DATE TO... ONCE ONCE .XX 06/29/17 02:45 06/29/17 02:46 Family History reviewed and NC to age. Social History Lives alone, from breast cancer 4 years back. Smoked a pipe for 20 years. No alcohol No illicit drug abuse. 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 Posted in [facility], [place] and [facility]. No prior known exposure to TB. Physical Exam Vital Signs Vital Signs Date Time Temp Pulse Resp B/P (MAP) Pulse Ox O2 Delivery O2 Flow Rate FiO2 06/27/17 09:07 93 Nasal Cannula 3.50 06/27/17 06:00 71 06/27/17 04:59 72 20 118/66 (83) 98 4.00 06/27/17 04:45 98.0 74 22 118/73 (88) 98 06/27/17 03:57 73 20 119/68 (85) 98 Nasal Cannula 2.00 06/26/17 23:00 80 18 114/59 (77) 96 Nasal Cannula 4.00 06/26/17 21:58 93 18 135/65 (88) 95 Nasal Cannula 4.00 06/26/17 21:06 95 Nasal Cannula 4.00 06/26/17 20:34 102 18 118/67 (84) 95 Nasal Cannula 06/26/17 19:15 18 06/26/17 17:52 109 21 124/63 (83) 97 Nasal Cannula 3.00 06/26/17 16:39 112 33 145/89 (107) 96 Nasal Cannula 4.00 06/26/17 16:36 Nasal Cannula 4.00 06/26/17 16:33 98 Nasal Cannula 4.00 98 1/23/18 13:21 98.3 112 18 130/67 (88) 95 Physical Exam GENERAL: This is a well-nourished, well-developed patient, in no apparent distress. SKIN: No rashes, ecchymoses or lesions. Cool and dry. HEAD: Atraumatic. Normocephalic. No temporal or scalp tenderness. EYES: Pupils equal round and reactive. Extraocular motions intact. No scleral icterus. No injection or drainage. ENT: Nose without bleeding, purulent drainage or septal hematoma. Throat without erythema, tonsillar hypertrophy or exudate. Uvula midline. Airway patent. NECK: Trachea midline. No JVD or lymphadenopathy. Supple, nontender, no meningeal signs. CARDIOVASCULAR: Regular rate and rhythm without murmurs, gallops, or rubs. RESPIRATORY: Clear to auscultation. Breath sounds equal bilaterally. No wheezes , rales, or rhonchi. GASTROINTESTINAL: Abdomen soft, non-tender, nondistended. No hepato-splenomegaly , or palpable masses. No guarding. MUSCULOSKELETAL: Extremities without clubbing, cyanosis, or edema. No joint tenderness, effusion, or edema noted. No calf tenderness. Negative Homans sign bilaterally. NEUROLOGICAL: Awake and alert. Cranial nerves II through XII intact. Motor and sensory grossly within normal limits. Five out of 5 muscle strength in all muscle groups. Normal speech. Psych cooperative, pleasant IV line sites with no e.o infection. Laboratory Laboratory Tests Test 06/26/17 14:12 06/26/17 16:40 06/26/17 16:45 06/26/17 17:17 White Blood Count 31.4 Red Blood Count 5.36 Hemoglobin 16.1 Hematocrit 49.9 Mean Corpuscular Volume 93.0 Mean Corpuscular Hemoglobin 30.0 Mean Corpuscular Hemoglobin Concent 32.3 Red Cell Distribution Width 13.7 Platelet Count 388 Mean Platelet Volume 9.5 Neutrophils (%) (Auto) 89.3 Lymphocytes (%) (Auto) 3.3 Monocytes (%) (Auto) 7.3 Eosinophils (%) (Auto) 0.0 Basophils (%) (Auto) 0.1 Neutrophils # (Auto) 28.0 Lymphocytes # (Auto) 1.1 Monocytes # (Auto) 2.3 Eosinophils # (Auto) 0.0 Basophils # (Auto) 0.0 CBC Comment AUTO DIFF Differential Total Cells Counted 100 Neutrophils % (Manual) 89 Band Neutrophils % 1 Lymphocytes % 3 Monocytes % 7 Neutrophils # (Manual) 28.3 Differential Comment FINAL DIFF MANUAL Toxic Granulation 2+ Toxic Vacuolation PRESENT Platelet Estimate NORMAL Platelet Morphology Comment NORMAL Basophilic Stippling FAINT [place] Bodies PRESENT Prothrombin Time 12.2 Prothromb Time International Ratio 1.2 Activated Partial Thromboplast Time 28.8 Blood Urea Nitrogen 17 Creatinine 0.79 Random Glucose 110 Calcium Level 9.2 Magnesium Level 2.3 Sodium Level 137 Potassium Level 5.2 Chloride Level 98 Carbon Dioxide Level 30.4 Anion Gap 9 Estimat Glomerular Filtration Rate 95 Total Creatine Kinase 41 Troponin I LESS THAN 0.02 Lactic Acid Level 2.7 B-Type Natriuretic Peptide 68 Blood Gas Puncture Site RT RADIAL Blood Gas Patient Temperature 98.6 Blood Gas HCO3 24 Blood Gas Base Excess 1.0 Blood Gas Oxygen Saturation 93 Arterial Blood pH 7.48 Arterial Blood Partial Pressure CO2 33 Arterial Blood Partial Pressure O2 72 Arterial Blood Oxygen Content 19.5 Arterial Blood Carboxyhemoglobin 1.2 Arterial Blood Methemoglobin 0.9 Blood Gas Hemoglobin 15.0 Oxygen Delivery Device NASAL CANNULA Blood Gas Liter Flow 4 Test 06/27/17 05:35 White Blood Count 28.1 Red Blood Count 4.39 Hemoglobin 13.6 Hematocrit 40.5 Mean Corpuscular Volume 92.4 Mean Corpuscular Hemoglobin 31.0 Mean Corpuscular Hemoglobin Concent 33.5 Red Cell Distribution Width 13.5 Platelet Count 333 Mean Platelet Volume 9.4 Neutrophils (%) (Auto) 97.6 Lymphocytes (%) (Auto) 1.2 Monocytes (%) (Auto) 1.1 Eosinophils (%) (Auto) 0.0 Basophils (%) (Auto) 0.1 Neutrophils # (Auto) 27.4 Lymphocytes # (Auto) 0.3 Monocytes # (Auto) 0.3 Eosinophils # (Auto) 0.0 Basophils # (Auto) 0.0 CBC Comment DIFF FINAL Differential Comment Prothrombin Time 13.1 Prothromb Time International Ratio 1.3 Activated Partial Thromboplast Time 33.7 Blood Urea Nitrogen 15 Creatinine 0.51 Random Glucose 137 Total Protein 5.6 Albumin 1.9 Calcium Level 8.5 Phosphorus Level 2.8 Magnesium Level 2.4 Alkaline Phosphatase 106 Aspartate Amino Transf (AST/SGOT) 17 Alanine Aminotransferase (ALT/SGPT) 33 Total Bilirubin 0.8 Sodium Level 140 Potassium Level 4.3 Chloride Level 104 Carbon Dioxide Level 28.2 Anion Gap 8 Estimat Glomerular Filtration Rate 157 Date/Time Source Procedure Growth Status 06/26/17 16:40 Blood Peripheral Aerobic Blood Culture - Preliminary NO GROWTH IN 1 DAY Resulted 06/26/17 16:40 Blood Peripheral Anaerobic Blood Culture - Preliminary NO GROWTH IN 1 DAY Resulted Result Diagram: 06/27/17 0535 06/27/17 0535 Imaging Last Impressions Chest X-Ray 06/27/17 0000 Signed Impressions: Service Date/Time: Tuesday, June 27, 2017 04:21 - CONCLUSION: Persistent multifocal right lung opacities with one in the lower lung increased in size. Brock James MD Chest CT 06/26/17 0000 Signed Impressions: Service Date/Time: Monday, June 26, 2017 17:36 - CONCLUSION: 1. Multifocal nodular and consolidative airspace disease with some early cavitation and asymmetry, right greater than left. There is associated distal airway disease, cylindrical bronchiectasis and peribronchial thickening. Findings probably infectious in nature. Consider mycobacterial or fungal pneumonia. Kal Lowry MD Assessment and Plan Assessment and Plan Cavitary pneumonia DDX: Post flu bacterial infection, atypical mycobacterial infection or fungi like aspergillus infections. Acute COPD exacerbation H/o Lymphoma in remission Recs: Continue Azithro IV Continue Vanco IV (target for pneumonia 15-20) Continue Zosyn IV Check sputum cultures and gram stain if possible to expectorate. Sputum AFB if possible. If sputum unable to be obtained will amy Long if bronchoscopy planned. Patient ok with Bronchoscopy if he cannot expectorate. d/w RN Left message for . Eliza yBrd MD Jun 27, 2017 13:03
--- NOTE | 2017-06-27 14:04 | HHI.CCPN ---
Subjective Remarks/Hospital Course 77-year-old male with a history of COPD, remote history of lymphoma now in remission 4 years, bronchitis presents with shortness of breath that started approximately 3 weeks ago. Patient states that last night it worsened and he decided to come to the emergency department today. States he did use his nebulizers this morning but did not have significant relief. He denies fevers, chills. Denies nausea, vomiting or diarrhea. Denies chest pain or back pain. He does not have a history of congestive heart failure or other cardiac disease although he does follow Dr. Wang annually for "a checkup". States that he was diagnosed with flu 3 weeks ago by his primary care physician and given azithromycin but this has not helped him. Patient does not recall any COPD exacerbation previously. Says that he did previously received chemotherapy for his lymphoma but this was 4 years ago. He does not currently follow an oncologist. 06/27: Afebrile. Cough but no hemoptysis. Breath is not foul. Chronic cavitary lesions worrisome. Await ID recommendations. Will discuss with Dr. Collins. Objective Vital Signs Date Time Temp Pulse Resp B/P (MAP) Pulse Ox O2 Delivery O2 Flow Rate FiO2 06/27/17 09:07 93 Nasal Cannula 3.50 06/27/17 06:00 71 06/27/17 04:59 20 118/66 (83) 06/27/17 04:45 98.0 06/26/17 16:33 98 Intake and Output 06/27/17 06/27/17 06/28/17 08:00 16:00 00:00 Intake Total 103 ml Output Total 600 ml Balance -497 ml Result Diagram: 06/27/17 0535 06/27/17 0535 Other Results Laboratory Tests Test 06/26/17 17:17 Blood Gas Puncture Site RT RADIAL Blood Gas Patient Temperature 98.6 Blood Gas HCO3 24 mmol/L (22-26) Blood Gas Base Excess 1.0 mmol/L (-2-2) Blood Gas Oxygen Saturation 93 % (90-100) Arterial Blood pH 7.48 (7.380-7.420) Arterial Blood Partial Pressure CO2 33 mmHg (38-42) Arterial Blood Partial Pressure O2 72 mmHG (61-120) Arterial Blood Oxygen Content 19.5 Vol % (12.0-20.0) Arterial Blood Carboxyhemoglobin 1.2 % (0-4) Arterial Blood Methemoglobin 0.9 % (0-2) Blood Gas Hemoglobin 15.0 G/DL (12.0-16.0) Oxygen Delivery Device NASAL CANNULA Blood Gas Liter Flow 4 L/M Imaging Last 24 hours Impressions Chest X-Ray 06/26/17 1338 Signed Impressions: Service Date/Time: Monday, June 26, 2017 14:00 - CONCLUSION: 1. Multiple primarily right-sided masslike parenchymal opacities. Differential considerations include metastatic disease versus atypical infection. Andriy Maier MD Objective Remarks GENERAL: Well-developed well-nourished, moderately labored. SKIN: Focused skin assessment warm/dry. HEAD: Atraumatic. Normocephalic. EYES: Pupils equal and round. No scleral icterus. No injection or drainage. ENT: No nasal bleeding or discharge. Mucous membranes pink and moist. NECK: Trachea midline. Airway widely patent. CARDIOVASCULAR: Tachycardic. No murmur appreciated. No JVD. RESPIRATORY: Persistent accessory muscle use. Rhonchi and wheezes present, mobile secretins few. GASTROINTESTINAL: Abdomen soft, non-tender, nondistended. No guarding. MUSCULOSKELETAL: No obvious deformities. No clubbing. No cyanosis. No edema. NEUROLOGICAL: Awake and alert. O X 3, conversant. Hard of hearing. Motor grossly within normal limits. Normal speech. A/P Assessment and Plan Respiratory failure - Atypical pneumonia - Azithromycin/Zosyn - Sputum culture, blood culture - Infectious disease consultation for atypical pneumonia with cavitary lesions - No history of hemoptysis, or contact with a TB - DuoNeb scheduled and when necessary COPD - DuoNeb scheduled and when necessary - Montelukast Sodium (Singulair) 10 mg HS PO - IV steroids Lymphoma - Supportive care DVT GI prophylaxis - Teds SCDs - Lovenox - Pepcid Overall impression: Acceptable gas exchange. Workup in progress. Jackson Orodñez MD Jun 27, 2017 14:04
[2017-06-27] MEDS: VANCOMYCIN INJ 1,250 MG in SODIUM CHLOR 0.9% 250 ML INJ 250 ML IV SCH (16:54)
[2017-06-27] MEDS ORDERED: AZITHROMYCIN INJ 500 MG in SODIUM CHLOR 0.9% 250 ML INJ 250 ML IV SCH ×2 (17:00→18:00)
[2017-06-27] MEDS: ENOXAPARIN SODIUM 40 MG/0.4 ML SYRINGE SQ SCH (21:45)
[2017-06-27] MEDS: MONTELUKAST SODIUM 10 MG TAB PO SCH (21:46)
[2017-06-28] VITALS (11 sets, daily range): BP systolic 97–159; BP diastolic 52–76; PULSE 64–94; RESP 19–26; TEMP 97.7–98.3; O2SAT 94–100
[2017-06-28] MEDS: PIPERACIL-TAZO 4.5 GM PREMIX 100 ML IV SCH ×3 (00:46→17:39)
[2017-06-28] MEDS: SODIUM CHLOR 0.9% 1000 ML INJ 1,000 ML IV SCH ×3 (00:50→17:39)
[2017-06-28] MEDS: VANCOMYCIN INJ 1,250 MG in SODIUM CHLOR 0.9% 250 ML INJ 250 ML IV SCH ×2 (03:11→15:28)
[2017-06-28] MEDS: RESP: ALBUTEROL 2.5 MG/IPRATROPIUM 0.5 MG NEB (SCH) INH ×4 (03:49→21:25)
[2017-06-28] MEDS: CHLORHEXIDINE GLUCONATE 2 % 1 PACK (2 CLOTHS) TOP SCH (04:00)
[2017-06-28 05:38] LABS: CREATININE 0.52 MG/DL (0.60-1.30)
[2017-06-28] MEDS: methylPREDNISolone SOD SUCC 125 MG/2 ML VIAL IV PUSH SCH ×3 (06:20→22:07)
[2017-06-28] MEDS ORDERED: PHARMACY ORDERED LAB ONE (07:45)
[2017-06-28] MEDS: CHLORHEXIDINE 0.12% (ORAL KIT) 15 ML CUP MT SCH ×2 (08:00→20:00)
[2017-06-28] MEDS: SODIUM CHLORIDE 0.9% FLUSH 10 ML FLUSH IV FLUSH SCH ×2 (10:42→21:00)
[2017-06-28] MEDS: MULTIVITAMIN TAB PO SCH (10:43)
[2017-06-28] MEDS: FAMOTIDINE 20 MG/2 ML VIAL IV PUSH SCH ×2 (10:43→22:07)
[2017-06-28] MEDS: DOCUSATE SODIUM 50 MG/SENNA 8.6 MG TAB PO SCH ×2 (10:43→22:06)
--- NOTE | 2017-06-28 14:48 | HHI.IDPN ---
Subjective Subjective Remarks is a 77 y/o CM with PMHx of Lymphoma in remission for last 4 years, COPD , chronic pipe smoker 20 yrs. 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 He was posted as part of [employer] in [facility], [place] and [facility]. No prior known exposure to TB. With this back ground patient reports h/o shortness of breath that started approximately 3 weeks ago. 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 He states he did use his nebulizers on morning of admission without any significant relief. He denies fevers, chills. Denies nausea, vomiting or diarrhea. Denies chest pain or back pain. Patient reports he was diagnosed with flu 3 weeks ago by his primary care physician and given azithromycin but this has not helped him. Patient does not recall any COPD exacerbation previously. Says that he did previously received chemotherapy for his lymphoma but this was 4 years ago. He does not currently follow an oncologist but in the past has seen . Patient also reports has given him nebs and levaquin in clinic but no improvement in symptoms. He notes he has had a small pin sized cavity on CXR that was followed by . Patients last CT Chest was 6 years back and it was normal with no mention of cavities per patient. I attempted to reach will try again. Pertinent positives and negatives: 10 pound intentional weight loss in last 1 month. Decreased appetite. Cough with expectoration, no hemoptysis. ID consulted for evaluation and Mment of cavitary pneumonia. Overnight events reviewed. No fevers No rash No diarrhea. Cough but not expectorating. Remains on O2 at 3L. Patient was offered to get bronch done as outpatient with vs at [facility] and he prefers to get it done here and get answers due to persistent shortness of breath and need for oxygen. Antibiotics Azithro IV Zosyn IV Vanco IV Lines Line sites with no e.o infection Past Medical History reviewed Allergies: Coded Allergies: No Known Allergies (Verified Allergy, Unknown, 04/02/17) Objective . Vital Signs Date Time Temp Pulse Resp B/P (MAP) Pulse Ox O2 Delivery O2 Flow Rate FiO2 1/25/18 12:00 97.7 79 24 128/62 (84) 97 06/28/17 09:29 97 Nasal Cannula 3.00 06/28/17 08:00 98.1 71 20 108/59 (75) 98 06/28/17 04:00 98.3 72 20 118/56 (76) 98 06/28/17 04:00 76 06/28/17 00:00 97.9 74 20 97/52 (67) 98 06/27/17 21:10 100 Nasal Cannula 3.00 06/27/17 20:55 98.2 84 20 123/60 (81) 97 06/27/17 20:00 98 Nasal Cannula 4.00 06/27/17 20:00 76 06/27/17 16:03 95 Nasal Cannula 3.00 06/27/17 16:00 98.5 72 20 115/64 (81) 95 06/27/17 15:00 77 . Laboratory Tests Test 06/27/17 05:35 White Blood Count 28.1 TH/MM3 Red Blood Count 4.39 MIL/MM3 Hemoglobin 13.6 GM/DL Hematocrit 40.5 % Mean Corpuscular Volume 92.4 FL Mean Corpuscular Hemoglobin 31.0 PG Mean Corpuscular Hemoglobin Concent 33.5 % Red Cell Distribution Width 13.5 % Platelet Count 333 TH/MM3 Mean Platelet Volume 9.4 FL Neutrophils (%) (Auto) 97.6 % Lymphocytes (%) (Auto) 1.2 % Monocytes (%) (Auto) 1.1 % Eosinophils (%) (Auto) 0.0 % Basophils (%) (Auto) 0.1 % Neutrophils # (Auto) 27.4 TH/MM3 Lymphocytes # (Auto) 0.3 TH/MM3 Monocytes # (Auto) 0.3 TH/MM3 Eosinophils # (Auto) 0.0 TH/MM3 Basophils # (Auto) 0.0 TH/MM3 CBC Comment DIFF FINAL Differential Comment Laboratory Tests Test 06/26/17 16:40 06/26/17 16:45 06/27/17 05:35 06/28/17 04:25 Lactic Acid Level 2.7 mmol/L B-Type Natriuretic Peptide 68 PG/ML Blood Urea Nitrogen 15 MG/DL Creatinine 0.51 MG/DL 0.52 MG/DL Random Glucose 137 MG/DL Total Protein 5.6 GM/DL Albumin 1.9 GM/DL Calcium Level 8.5 MG/DL Phosphorus Level 2.8 MG/DL Magnesium Level 2.4 MG/DL Alkaline Phosphatase 106 U/L Aspartate Amino Transf (AST/SGOT) 17 U/L Alanine Aminotransferase (ALT/SGPT) 33 U/L Total Bilirubin 0.8 MG/DL Sodium Level 140 MEQ/L Potassium Level 4.3 MEQ/L Chloride Level 104 MEQ/L Carbon Dioxide Level 28.2 MEQ/L Anion Gap 8 MEQ/L Estimat Glomerular Filtration Rate 157 ML/MIN 153 ML/MIN Microbiology Date/Time Source Procedure Growth Status 06/26/17 16:40 Blood Peripheral Aerobic Blood Culture - Preliminary NO GROWTH IN 2 DAYS Resulted 06/26/17 16:40 Blood Peripheral Anaerobic Blood Culture - Preliminary NO GROWTH IN 2 DAYS Resulted 06/26/17 16:40 Blood Peripheral Aerobic Blood Culture - Preliminary NO GROWTH IN 2 DAYS Resulted 06/26/17 16:40 Blood Peripheral Anaerobic Blood Culture - Preliminary NO GROWTH IN 2 DAYS Resulted Imaging Last Impressions Chest X-Ray 06/27/17 0000 Signed Impressions: Service Date/Time: Tuesday, June 27, 2017 04:21 - CONCLUSION: Persistent multifocal right lung opacities with one in the lower lung increased in size. Brock James MD Chest CT 06/26/17 0000 Signed Impressions: Service Date/Time: Monday, June 26, 2017 17:36 - CONCLUSION: 1. Multifocal nodular and consolidative airspace disease with some early cavitation and asymmetry, right greater than left. There is associated distal airway disease, cylindrical bronchiectasis and peribronchial thickening. Findings probably infectious in nature. Consider mycobacterial or fungal pneumonia. Kal Lowry MD Physical Exam GENERAL: This is a well-nourished, well-developed patient, in no apparent distress. SKIN: No rashes, ecchymoses or lesions. Cool and dry. HEAD: Atraumatic. Normocephalic. No temporal or scalp tenderness. EYES: Pupils equal round and reactive. Extraocular motions intact. No scleral icterus. No injection or drainage. ENT: Nose without bleeding, purulent drainage or septal hematoma. Throat without erythema, tonsillar hypertrophy or exudate. Uvula midline. Airway patent. NECK: Trachea midline. Supple, nontender, no meningeal signs. CARDIOVASCULAR: Regular rate and rhythm without murmurs, gallops, or rubs. RESPIRATORY: Clear to auscultation. Breath sounds decreased in bases. GASTROINTESTINAL: Abdomen soft, non-tender, nondistended. MUSCULOSKELETAL: Extremities without clubbing, cyanosis, or edema. No joint tenderness, effusion, or edema noted. No calf tenderness. Negative Homans sign bilaterally. NEUROLOGICAL: Awake and alert. Cranial nerves II through XII intact. Motor and sensory grossly within normal limits. Five out of 5 muscle strength in all muscle groups. Normal speech. Psych cooperative, pleasant IV line sites with no e.o infection. Assessment & Plan Remarks Cavitary pneumonia DDX: Post flu bacterial infection, atypical mycobacterial infection or fungi like aspergillus infections. Acute COPD exacerbation H/o Lymphoma in remission Recs: DC Azithro IV Continue Vanco IV (target for pneumonia 15-20) DC Zosyn IV Start Levaquin Patient unable to expectorate. Patient would like bronch in hospital. d/w : he will see pt. Patient ate lunch at 1 pm. Bronch likely in am he will call and book bronch suite. d/w Eliza Ware MD Jun 28, 2017 14:48
--- NOTE | 2017-06-28 15:06 | HHI.CCPN ---
Subjective Remarks/Hospital Course 77-year-old male with a history of COPD, remote history of lymphoma now in remission 4 years, bronchitis presents with shortness of breath that started approximately 3 weeks ago. Patient states that last night it worsened and he decided to come to the emergency department today. States he did use his nebulizers this morning but did not have significant relief. He denies fevers, chills. Denies nausea, vomiting or diarrhea. Denies chest pain or back pain. He does not have a history of congestive heart failure or other cardiac disease although he does follow Dr. Wang annually for "a checkup". States that he was diagnosed with flu 3 weeks ago by his primary care physician and given azithromycin but this has not helped him. Patient does not recall any COPD exacerbation previously. Says that he did previously received chemotherapy for his lymphoma but this was 4 years ago. He does not currently follow an oncologist. 06/27: Afebrile. Cough but no hemoptysis. Breath is not foul. Chronic cavitary lesions worrisome. Await ID recommendations. Will discuss with Dr. Collins. 06/28: No sputum for C&S yet. Will need bronchoscopy and BAL. Discussed with Dr. Byrd, ID. Leukocytosis persists. Objective Vital Signs Date Time Temp Pulse Resp B/P (MAP) Pulse Ox O2 Delivery O2 Flow Rate FiO2 06/28/17 12:00 97.7 79 24 128/62 (84) 97 06/28/17 09:29 Nasal Cannula 3.00 06/26/17 16:33 98 Intake and Output 06/28/17 06/28/17 06/29/17 08:00 16:00 00:00 Intake Total 1148 ml Output Total 700 ml Balance 448 ml Result Diagram: 06/27/17 0535 06/28/17 0425 Imaging Last 24 hours Impressions Chest X-Ray 06/26/17 1338 Signed Impressions: Service Date/Time: Monday, June 26, 2017 14:00 - CONCLUSION: 1. Multiple primarily right-sided masslike parenchymal opacities. Differential considerations include metastatic disease versus atypical infection. Andriy Maier MD Objective Remarks GENERAL: Well-developed well-nourished, moderately labored. SKIN: Focused skin assessment warm/dry. HEAD: Atraumatic. Normocephalic. EYES: Pupils equal and round. No scleral icterus. No injection or drainage. ENT: No nasal bleeding or discharge. Mucous membranes pink and moist. NECK: Trachea midline. Airway widely patent. CARDIOVASCULAR: RRR. No murmur appreciated. No JVD. RESPIRATORY: Persistent accessory muscle use. Rhonchi and wheezes present. GASTROINTESTINAL: Abdomen soft, non-tender, nondistended. No guarding. MUSCULOSKELETAL: No obvious deformities. No clubbing. No cyanosis. No edema. NEUROLOGICAL: Awake and alert. O X 3, conversant. Hard of hearing. Motor grossly within normal limits. Normal speech. A/P Assessment and Plan Respiratory failure - Atypical pneumonia - Azithromycin/Zosyn - Sputum culture, blood culture - Infectious disease consultation for atypical pneumonia with cavitary lesions - No history of hemoptysis, or contact with a TB - DuoNeb scheduled and when necessary COPD - DuoNeb scheduled and when necessary - Montelukast Sodium (Singulair) 10 mg HS PO - IV steroids Lymphoma - Supportive care DVT GI prophylaxis - Teds SCDs - Lovenox - Pepcid Nutrition - Appears depleted, check prealbumin Overall impression: Acceptable gas exchange. Requiring O2. Workup in progress. Jackson Ordoñez MD Jun 28, 2017 15:06
[2017-06-28] MEDS: MONTELUKAST SODIUM 10 MG TAB PO SCH (22:06)
[2017-06-29] VITALS (10 sets, daily range): BP systolic 121–150; BP diastolic 58–78; PULSE 56–95; RESP 16–22; TEMP 97.7–98.6; O2SAT 94–100
[2017-06-29] MEDS: PIPERACIL-TAZO 4.5 GM PREMIX 100 ML IV SCH ×5 (00:27→23:56)
[2017-06-29] MEDS ORDERED: PHARMACY ORDERED LAB ONE ×2 (02:45→14:45)
[2017-06-29] MEDS: RESP: ALBUTEROL 2.5 MG/IPRATROPIUM 0.5 MG NEB (SCH) INH ×4 (04:56→21:23)
[2017-06-29 05:05] LABS: AUTOMATED NEUTROPHIL # 16.4 TH/MM3 (1.8-7.7); HEMATOCRIT 38.9 % (39.0-51.0); LYMPH % 1.7 % (9.0-44.0); LYMPHOCYTE # 0.3 TH/MM3 (1.0-4.8); MEAN CORPUSCULAR HEMOGLOBIN 30.8 PG (27.0-34.0); MEAN CORPUSCULAR HGB CONC 33.5 % (32.0-36.0); MEAN PLATELET VOLUME 9.5 FL (7.0-11.0); MONO % 2.9 % (0.0-8.0); MONOCYTE # 0.5 TH/MM3 (0-0.9); NEUT % 95.4 % (16.0-70.0); PLATELET COUNT 372 TH/MM3 (150-450); RED BLOOD COUNT 4.23 MIL/MM3 (4.50-5.90); RED CELL DISTRIBUTION WIDTH 13.5 % (11.6-17.2); WHITE BLOOD COUNT 17.2 TH/MM3 (4.0-11.0)
[2017-06-29] MEDS: methylPREDNISolone SOD SUCC 125 MG/2 ML VIAL IV PUSH SCH ×3 (06:09→20:24)
[2017-06-29] MEDS: VANCOMYCIN INJ 1,250 MG in SODIUM CHLOR 0.9% 250 ML INJ 250 ML IV SCH ×2 (06:13→17:39)
[2017-06-29] MEDS: SODIUM CHLOR 0.9% 1000 ML INJ 1,000 ML IV SCH ×2 (07:22→20:30)
[2017-06-29] MEDS: CHLORHEXIDINE 0.12% (ORAL KIT) 15 ML CUP MT SCH ×2 (08:00→20:00)
--- NOTE | 2017-06-29 08:33 | MB ---
cc: SONIA HAWKINS,PEDRITO SMITH DATE OF CONSULTATION 06/28/[address] Pedrito Byrd. REASON FOR CONSULTATION Lung infiltrate and need for bronchoscopy. HISTORY OF PRESENT ILLNESS Mr. Mallory is a 77-year-old male with a history of COPD and lymphoma. He received chemotherapy [address] Gutierrez. The patient has not been feeling well for the last 2-3 weeks. He had a low-grade fever. He was seen by Dr. Arango and given antibiotic as an outpatient. He did not get better and because of worsening of his symptoms he came to the hospital. He had a work-up done. He had a CT scan of the chest done which shows he has multifocal nodular and consolidated airspace disease with early cavitation. He has distal airway cylindrical bronchiectasis, need to rule out possible mycobacterial or fungal infection. LABORATORY CBC showed WBC count 28.1, hemoglobin 13.6, hematocrit 40.5, MCV 92, platelet count 333. Sodium 140, potassium 4.2, chloride 104, CO2 28, BUN 15, creatinine 0.51. Blood gas pH 7.48, PCO2 32, PO2 72, bicarb 24. INR is 1.3. PAST MEDICAL HISTORY 1. Lymphoma, status post chemotherapy 4 years ago. 2. COPD. 3. Chronic bronchitis. 4. Tonsillectomy. 5. Splenectomy. 6. Inguinal hernia surgery. MEDICATIONS He is currently takin. Vancomycin 1250 mg q.12h. 2. Solu-Medrol 60 mg q.8h. 3. Albuterol/Atrovent nebulizer treatment. 4. Singulair 10 mg a day. 5. Famotidine 20 mg a day. 6. Senokot q.12h. 7. Zosyn IV. ALLERGIES No known drug allergies. SOCIAL HISTORY He has no cigarette smoking but smoked a pipe for 20 years. Drinks rarely. 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 FAMILY HISTORY He is a , lives alone, has one daughter who lives in [place]. REVIEW OF SYSTEMS He has lost 10 pounds of weight on his own; has a decreased appetite. No chills. He had a low-grade fever. No hemoptysis. No DVT or pulmonary embolism. PHYSICAL EXAMINATION GENERAL: A pleasant elderly male not in acute distress, appropriate. VITAL SIGNS: Blood pressure 139/67, heart rate 70, respirations 20, temperature 98.2. HEENT: Pupils are equal, round and reactive to light. Oral mucosa and nasal mucosa normal. NECK: Supple. JVP not raised. CHEST: Basilar rales. CV: S1, S2 normal. ABDOMEN: Soft, nondistended. Bowel sounds are present. EXTREMITIES: No edema. IMPRESSION 1. Nodular lung infiltrate with cavitation, need to rule out possibility of fungal infection or mycobacterial infection. 2. Leukocytosis. 3. History of lymphoma. 4. COPD. PLAN I discussed with the patient and discussed with Dr. Byrd. He will need a bronchoscopy. I explained the procedure and the complications including complication of anesthesia, pneumothorax requiring chest tube, bleeding complication, injury to blood vessels, lungs and nerves, arrhythmia, hypoxia, which he understands well and wants to proceed. I will hold his Lovenox and schedule him for bronchoscopy tomorrow. Further treatment will depend on the course in the hospital. Thank you, Dr. Pedrito Byrd, for this consult. MD DIGNA Shahid/MARISA /7:04 PM /8:01 AM
[2017-06-29] MEDS: DOCUSATE SODIUM 50 MG/SENNA 8.6 MG TAB PO SCH ×2 (09:29→20:24)
[2017-06-29] MEDS: SODIUM CHLORIDE 0.9% FLUSH 10 ML FLUSH IV FLUSH SCH ×2 (09:30→20:24)
[2017-06-29] MEDS: MULTIVITAMIN TAB PO SCH (09:30)
[2017-06-29] MEDS: FAMOTIDINE 20 MG/2 ML VIAL IV PUSH SCH ×2 (09:30→20:24)
[2017-06-29] MEDS ORDERED: DO NOT ADM ANY ANTICOAGULANT DRUGS PRN (12:05)
[2017-06-29] MEDS ORDERED: *RESP: ALBUTEROL 2.5 MG/3 ML NEB (PRN) PERIprocedural Use ONLY NEB ONE (12:15)
--- NOTE | 2017-06-29 12:53 | RADRPT ---
EXAM DATE/TIME: 06/29/2017 12:35 [facility] COMPARISON: CHEST SINGLE AP, June 27, 2017, 4:21. INDICATIONS : Post bronchoscopy. MEDICAL HISTORY : Chronic obstructive pulmonary disease. SURGICAL HISTORY : Inguinal hernia repair. Splenectomy. ENCOUNTER: Subsequent ACUITY: 3 days PAIN SCORE: 0/10 LOCATION: chest FINDINGS: A single portable frontal view the chest shows patchy areas of consolidation throughout the right bennett g. These have improved slightly from the prior study. Left lung is clear. Heart is normal in size. No effusions. CONCLUSION: Slight improvement in the right lung infiltrates. Brock Keating Jr., MD on June 29, 2017 at 12:49 Board Certified Radiologist. This report was verified electronically.
--- NOTE | 2017-06-29 14:41 | HHI.IDPN ---
Subjective Subjective Remarks is a 77 y/o CM with PMHx of Lymphoma in remission for last 4 years, COPD , chronic pipe smoker 20 yrs. 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 He was posted as part of [employer] in [facility], [place] and [facility]. No prior known exposure to TB. With this back ground patient reports h/o shortness of breath that started approximately 3 weeks ago. Due to worsening shortness of breath patient presented to the ED at [facility] at the direction of his anesthesiologist attending . He states he did use his nebulizers on morning of admission without any significant relief. He denies fevers, chills. Denies nausea, vomiting or diarrhea. Denies chest pain or back pain. Patient reports he was diagnosed with flu 3 weeks ago by his primary care physician and given azithromycin but this has not helped him. Patient does not recall any COPD exacerbation previously. Says that he did previously received chemotherapy for his lymphoma but this was 4 years ago. He does not currently follow an oncologist but in the past has seen . Patient also reports has given him nebs and levaquin in clinic but no improvement in symptoms. He notes he has had a small pin sized cavity on CXR that was followed by . Patients last CT Chest was 6 years back and it was normal with no mention of cavities per patient. I attempted to reach will try again. Pertinent positives and negatives: 10 pound intentional weight loss in last 1 month. Decreased appetite. Cough with expectoration, no hemoptysis. ID consulted for evaluation and Mment of cavitary pneumonia. Overnight events reviewed. No fevers No rash No diarrhea. Cough but not expectorating. Remains on O2 at 3L. Patient was offered to get bronch done as outpatient with vs at [facility] and he prefers to get it done here and get answers due to persistent shortness of breath and need for oxygen. Antibiotics Azithro IV Zosyn IV Vanco IV Lines Line sites with no e.o infection Past Medical History reviewed Allergies: Coded Allergies: No Known Allergies (Verified Allergy, Unknown, 04/02/17) Objective . Vital Signs Date Time Temp Pulse Resp B/P (MAP) Pulse Ox O2 Delivery O2 Flow Rate FiO2 1/26/18 13:05 97.7 95 22 146/78 (100) 94 06/29/17 12:45 97.5 97 22 165/84 (111) 93 Nasal Cannula 3 06/29/17 12:30 96 22 155/80 (105) 93 Nasal Cannula 3 06/29/17 12:15 96 22 128/76 (93) 91 Nasal Cannula 3 06/29/17 12:07 97.5 91 22 128/78 (95) 93 Nasal Cannula 3 06/29/17 08:00 98.0 72 20 121/58 (79) 97 06/29/17 04:00 98.6 56 16 123/63 (83) 100 06/29/17 00:24 98.5 78 16 127/60 (82) 100 06/28/17 21:27 94 Nasal Cannula 3.00 06/28/17 20:00 94 06/28/17 20:00 98 Nasal Cannula 3.00 06/28/17 20:00 98.0 89 19 159/76 (103) 96 06/28/17 18:00 78 06/28/17 16:00 98.2 78 26 139/67 (91) 100 06/28/17 16:00 76 . Laboratory Tests Test 06/29/17 04:10 White Blood Count 17.2 TH/MM3 Red Blood Count 4.23 MIL/MM3 Hemoglobin 13.0 GM/DL Hematocrit 38.9 % Mean Corpuscular Volume 92.0 FL Mean Corpuscular Hemoglobin 30.8 PG Mean Corpuscular Hemoglobin Concent 33.5 % Red Cell Distribution Width 13.5 % Platelet Count 372 TH/MM3 Mean Platelet Volume 9.5 FL Neutrophils (%) (Auto) 95.4 % Lymphocytes (%) (Auto) 1.7 % Monocytes (%) (Auto) 2.9 % Eosinophils (%) (Auto) 0.0 % Basophils (%) (Auto) 0.0 % Neutrophils # (Auto) 16.4 TH/MM3 Lymphocytes # (Auto) 0.3 TH/MM3 Monocytes # (Auto) 0.5 TH/MM3 Eosinophils # (Auto) 0.0 TH/MM3 Basophils # (Auto) 0.0 TH/MM3 CBC Comment DIFF FINAL Differential Comment Laboratory Tests Test 06/28/17 04:25 06/29/17 04:10 Creatinine 0.52 MG/DL Estimat Glomerular Filtration Rate 153 ML/MIN Prealbumin 12 MG/DL Microbiology Date/Time Source Procedure Growth Status 06/26/17 16:40 Blood Peripheral Aerobic Blood Culture - Preliminary NO GROWTH IN 3 DAYS Resulted 06/26/17 16:40 Blood Peripheral Anaerobic Blood Culture - Preliminary NO GROWTH IN 3 DAYS Resulted 06/26/17 16:40 Blood Peripheral Aerobic Blood Culture - Preliminary NO GROWTH IN 3 DAYS Resulted 06/26/17 16:40 Blood Peripheral Anaerobic Blood Culture - Preliminary NO GROWTH IN 3 DAYS Resulted 06/29/17 11:45 Bronchial Washings Bronchial Fungal Smear Pending Received 06/29/17 11:45 Bronchial Washings Bronchial Fungal Culture Pending Received 06/29/17 11:45 Bronchial Washings Bronchial Acid Fast Stain Pending Received 06/29/17 11:45 Bronchial Washings Bronchial Mycobacterial Culture Pending Received 06/29/17 11:45 Bronchial Washings Bronchial Gram Stain Pending Received 06/29/17 11:45 Bronchial Washings Bronchial Bronchial Culture Pending Received Imaging Last Impressions Chest X-Ray 06/27/17 0000 Signed Impressions: Service Date/Time: Tuesday, June 27, 2017 04:21 - CONCLUSION: Persistent multifocal right lung opacities with one in the lower lung increased in size. Brokc James MD Chest CT 06/26/17 0000 Signed Impressions: Service Date/Time: Monday, June 26, 2017 17:36 - CONCLUSION: 1. Multifocal nodular and consolidative airspace disease with some early cavitation and asymmetry, right greater than left. There is associated distal airway disease, cylindrical bronchiectasis and peribronchial thickening. Findings probably infectious in nature. Consider mycobacterial or fungal pneumonia. Kal Lowry MD Physical Exam GENERAL: This is a well-nourished, well-developed patient, in no apparent distress. SKIN: No rashes, ecchymoses or lesions. Cool and dry. HEAD: Atraumatic. Normocephalic. No temporal or scalp tenderness. EYES: Pupils equal round and reactive. Extraocular motions intact. No scleral icterus. No injection or drainage. ENT: Nose without bleeding, purulent drainage or septal hematoma. Throat without erythema, tonsillar hypertrophy or exudate. Uvula midline. Airway patent. NECK: Trachea midline. Supple, nontender, no meningeal signs. CARDIOVASCULAR: Regular rate and rhythm without murmurs, gallops, or rubs. RESPIRATORY: Clear to auscultation. Breath sounds decreased in bases. GASTROINTESTINAL: Abdomen soft, non-tender, nondistended. MUSCULOSKELETAL: Extremities without clubbing, cyanosis, or edema. No joint tenderness, effusion, or edema noted. No calf tenderness. Negative Homans sign bilaterally. NEUROLOGICAL: Awake and alert. Cranial nerves II through XII intact. Motor and sensory grossly within normal limits. Five out of 5 muscle strength in all muscle groups. Normal speech. Psych cooperative, pleasant IV line sites with no e.o infection. Assessment & Plan Remarks Cavitary pneumonia DDX: Post flu bacterial infection, atypical mycobacterial infection or fungi like aspergillus infections. Acute COPD exacerbation H/o Lymphoma in remission Recs: Continue Vanco IV (target for pneumonia 15-20) Continue Levaquin Appreciate pulm recs and help. d/w d/w RN: will follow cultures and clinically over weekend. Possible DC on Sunday if continues to do well and cultures finalized. covering for me this weekend. Eliza Byrd MD Jun 29, 2017 14:41
--- NOTE | 2017-06-29 16:47 | MR ---
cc: SONIA HAWKINS DATE: 06/29/2017. PROCEDURE PERFORMED: Bronchoscopy PREOPERATIVE DIAGNOSIS: Lung infiltrate. POSTOPERATIVE DIAGNOSIS: Mucus plugging in both lungs. DESCRIPTION OF THE PROCEDURE IN DETAIL: Informed consent was obtained from the patient. The procedure and the complications including complications of anesthesia, pneumothorax, right chest tube, bleeding complications, due to the blood vessels, lungs, nerves, arrhythmia and hypoxia and he consented for the procedure. The patient was brought to the endoscopy suite and under general anesthesia, LMA tube was placed by anesthesiology. Bronchoscopy was done through LMA tube. Vocal cords are normal. There was thick mucus seen in the trachea, which was suctioned. He also has tracheal bronchomalacia. The bronchoscope was advanced to the right lung, right upper, middle and lower lobes visualized. Thick mucus was suctioned and mucus plugs were removed. After removing all the mucus, all subsegments were cleaned and no endobronchial lesions were seen. Then the bronchoscope was advanced through the left lung and a lot of thick mucus plugs were removed from all the sub segments. After suctioning all the sub segments there was no endobronchial lesion seen. Mild erythema noted. Bronchial washings sent for routine culture, AFB, fungal culture and cytology. He tolerated the procedure well. Postprocedure chest x-ray ordered to rule out pneumothorax. MD DIGNA Shahid/NARCISA /12:05 PM /4:17 PM [facility]ITALKeith
--- NOTE | 2017-06-29 16:48 | HHI.PR ---
Subjective Remarks 77 YOWM with COPD,Nodular lung infilt,H/O Lymphoma Had Bronch Lot of thick mucous with mucous plugs removed No Mass or obst seen Objective Vital Signs Vital Signs Date Time Temp Pulse Resp B/P (MAP) Pulse Ox O2 Delivery O2 Flow Rate FiO2 06/29/17 16:27 94 Nasal Cannula 3.00 06/29/17 16:00 97.8 69 22 150/67 (94) 97 06/29/17 13:05 97.7 95 22 146/78 (100) 94 06/29/17 12:45 97.5 97 22 165/84 (111) 93 Nasal Cannula 3 06/29/17 12:30 96 22 155/80 (105) 93 Nasal Cannula 3 06/29/17 12:15 96 22 128/76 (93) 91 Nasal Cannula 3 06/29/17 12:07 97.5 91 22 128/78 (95) 93 Nasal Cannula 3 06/29/17 08:30 98 Nasal Cannula 3.00 06/29/17 08:00 98.0 72 20 121/58 (79) 97 06/29/17 04:00 98.6 56 16 123/63 (83) 100 06/29/17 00:24 98.5 78 16 127/60 (82) 100 06/28/17 21:27 94 Nasal Cannula 3.00 06/28/17 20:00 94 06/28/17 20:00 98 Nasal Cannula 3.00 06/28/17 20:00 98.0 89 19 159/76 (103) 96 06/28/17 18:00 78 I/O 06/28/17 06/28/17 06/28/17 06/29/17 06/29/17 06/29/17 07:00 15:00 23:00 07:00 15:00 23:00 Intake Total 1148 ml 1200 ml 350 ml Output Total 700 ml 450 ml 900 ml Balance 448 ml 750 ml -550 ml Intake Oral 200 ml 1200 ml 350 ml IV Total 948 ml Output Urine Total 700 ml 450 ml 900 ml # Voids 1 # Bowel Movements 0 1 Result Diagram: 06/29/1740906/28/17 1135 Objective Remarks GENERAL: Elderly male NAD SKIN: Warm and dry. HEAD: Normocephalic. EYES: No scleral icterus. No injection or drainage. NECK: Supple, trachea midline. No JVD or lymphadenopathy. CARDIOVASCULAR: Regular rate and rhythm without murmurs, gallops, or rubs. RESPIRATORY: Breath sounds equal bilaterally. No accessory muscle use. GASTROINTESTINAL: Abdomen soft, non-tender, nondistended. MUSCULOSKELETAL: No cyanosis, or edema. BACK: Nontender without obvious deformity. No CVA tenderness. A/P Assessment and Plan COPD Mucous plgging of airways Nodular lung infilt H/o Lymphoma PLAN: Check cultures Aerosol nebs Start Mucomyst Nebs Cont Abx per ID Joaquin Harris MD Jun 29, 2017 16:48
--- NOTE | 2017-06-29 18:46 | HHI.CCPN ---
Subjective Remarks/Hospital Course 77-year-old male with a history of COPD, remote history of lymphoma now in remission 4 years, bronchitis presents with shortness of breath that started approximately 3 weeks ago. Patient states that last night it worsened and he decided to come to the emergency department today. States he did use his nebulizers this morning but did not have significant relief. He denies fevers, chills. Denies nausea, vomiting or diarrhea. Denies chest pain or back pain. He does not have a history of congestive heart failure or other cardiac disease although he does follow Dr. Wang annually for "a checkup". States that he was diagnosed with flu 3 weeks ago by his primary care physician and given azithromycin but this has not helped him. Patient does not recall any COPD exacerbation previously. Says that he did previously received chemotherapy for his lymphoma but this was 4 years ago. He does not currently follow an oncologist. 06/27: Afebrile. Cough but no hemoptysis. Breath is not foul. Chronic cavitary lesions worrisome. Await ID recommendations. Will discuss with Dr. Collins. 06/28: No sputum for C&S yet. Will need bronchoscopy and BAL. Discussed with Dr. Byrd, ID. Leukocytosis persists. 06/29: Bronchoscopy and cultures today. Continue broad abx coverage. Studies indicate protein calorie malnutrition. Objective Vital Signs Date Time Temp Pulse Resp B/P (MAP) Pulse Ox O2 Delivery O2 Flow Rate FiO2 06/29/17 16:27 94 Nasal Cannula 3.00 06/29/17 16:00 97.8 69 22 150/67 (94) 06/26/17 16:33 98 Intake and Output 06/29/17 06/29/17 06/30/17 08:00 16:00 00:00 Intake Total 350 ml 480 ml Output Total 900 ml 740 ml Balance -550 ml -260 ml Result Diagram: 06/29/17 0410 06/28/17 0425 Imaging Last 24 hours Impressions Chest X-Ray 06/26/17 3468 Signed Impressions: Service Date/Time: Monday, June 26, 2017 14:00 - CONCLUSION: 1. Multiple primarily right-sided masslike parenchymal opacities. Differential considerations include metastatic disease versus atypical infection. Andriy Maier MD Objective Remarks GENERAL: Well-developed well-nourished, moderately labored. SKIN: Focused skin assessment warm/dry. HEAD: Atraumatic. Normocephalic. EYES: Pupils equal and round. No scleral icterus. No injection or drainage. ENT: No nasal bleeding or discharge. Mucous membranes pink and moist. NECK: Trachea midline. Airway widely patent. CARDIOVASCULAR: RRR. No murmur appreciated. No JVD. RESPIRATORY: Persistent accessory muscle use. Rhonchi and wheezes present. GASTROINTESTINAL: Abdomen soft, non-tender, nondistended. No guarding. MUSCULOSKELETAL: No obvious deformities. No clubbing. No cyanosis. No edema. NEUROLOGICAL: Awake and alert. O X 3, conversant. Hard of hearing. Motor grossly within normal limits. Normal speech. A/P Assessment and Plan Respiratory failure - Atypical pneumonia - Azithromycin/Zosyn - Sputum culture, blood culture - Infectious disease consultation for atypical pneumonia with cavitary lesions - No history of hemoptysis, or contact with a TB - DuoNeb scheduled and when necessary - Bronch and cultures 06/29 COPD - DuoNeb scheduled and when necessary - Montelukast Sodium (Singulair) 10 mg HS PO - IV steroids Lymphoma - Supportive care DVT GI prophylaxis - Teds SCDs - Lovenox - Pepcid Nutrition - Appears depleted, check prealbumin -> 10 Overall impression: Acceptable gas exchange. Requiring supplemental O2. Pneumonia with necrosis. Workup in progress. Jackson Ordoñez MD Jun 29, 2017 18:46
[2017-06-29] MEDS: MONTELUKAST SODIUM 10 MG TAB PO SCH (20:24)
[2017-06-29] MEDS: RESP: ACETYLCYSTEINE 10% 10 ML NEB NEB SCH (22:00)
[2017-06-30] VITALS (11 sets, daily range): BP systolic 121–154; BP diastolic 59–76; PULSE 52–82; RESP 16–20; TEMP 98.1–98.3; O2SAT 94–97
[2017-06-30] MEDS: CHLORHEXIDINE GLUCONATE 2 % 1 PACK (2 CLOTHS) TOP SCH (03:09)
[2017-06-30] MEDS: RESP: ACETYLCYSTEINE 10% 10 ML NEB NEB SCH ×2 (04:00→10:00)
[2017-06-30] MEDS: VANCOMYCIN INJ 1,500 MG in SODIUM CHLORID 0.9% 500 ML INJ 500 ML IV SCH ×2 (04:52→17:45)
[2017-06-30] MEDS: RESP: ALBUTEROL 2.5 MG/IPRATROPIUM 0.5 MG NEB (SCH) INH ×3 (05:01→16:47)
[2017-06-30] MEDS: PIPERACIL-TAZO 4.5 GM PREMIX 100 ML IV SCH ×4 (05:49→23:19)
[2017-06-30] MEDS: methylPREDNISolone SOD SUCC 125 MG/2 ML VIAL IV PUSH SCH ×3 (05:49→20:26)
[2017-06-30 06:48] LABS: AUTOMATED NEUTROPHIL # 12.3 TH/MM3 (1.8-7.7); BASOPHIL % 0.1 % (0.0-2.0); HEMATOCRIT 41.2 % (39.0-51.0); HEMOGLOBIN 13.7 GM/DL (13.0-17.0); LYMPH % 2.6 % (9.0-44.0); LYMPHOCYTE # 0.3 TH/MM3 (1.0-4.8); MEAN CELL VOLUME 91.9 FL (80.0-100.0); MEAN CORPUSCULAR HEMOGLOBIN 30.6 PG (27.0-34.0); MEAN CORPUSCULAR HGB CONC 33.2 % (32.0-36.0); MEAN PLATELET VOLUME 9.5 FL (7.0-11.0); MONO % 5.3 % (0.0-8.0); MONOCYTE # 0.7 TH/MM3 (0-0.9); PLATELET COUNT 397 TH/MM3 (150-450); RED BLOOD COUNT 4.49 MIL/MM3 (4.50-5.90); RED CELL DISTRIBUTION WIDTH 13.5 % (11.6-17.2); WHITE BLOOD COUNT 13.4 TH/MM3 (4.0-11.0)
[2017-06-30 07:00] LABS: BICARBONATE 31.2 MEQ/L (21.0-32.0); CALCIUM 8.3 MG/DL (8.5-10.1); CREATININE 0.54 MG/DL (0.60-1.30)
[2017-06-30] MEDS: CHLORHEXIDINE 0.12% (ORAL KIT) 15 ML CUP MT SCH ×2 (08:00→20:00)
[2017-06-30] MEDS: SODIUM CHLORIDE 0.9% FLUSH 10 ML FLUSH IV FLUSH SCH ×2 (09:00→20:24)
[2017-06-30] MEDS: FAMOTIDINE 20 MG/2 ML VIAL IV PUSH SCH ×2 (09:27→20:23)
[2017-06-30] MEDS: MULTIVITAMIN TAB PO SCH (09:27)
[2017-06-30] MEDS: DOCUSATE SODIUM 50 MG/SENNA 8.6 MG TAB PO SCH ×2 (12:25→20:24)
[2017-06-30] MEDS: SODIUM CHLOR 0.9% 1000 ML INJ 1,000 ML IV SCH ×2 (15:22→19:07)
--- NOTE | 2017-06-30 19:56 | HHI.CCPN ---
Subjective Remarks/Hospital Course 77-year-old male with a history of COPD, remote history of lymphoma now in remission 4 years, bronchitis presents with shortness of breath that started approximately 3 weeks ago. Patient states that last night it worsened and he decided to come to the emergency department today. States he did use his nebulizers this morning but did not have significant relief. He denies fevers, chills. Denies nausea, vomiting or diarrhea. Denies chest pain or back pain. He does not have a history of congestive heart failure or other cardiac disease although he does follow Dr. Wang annually for "a checkup". States that he was diagnosed with flu 3 weeks ago by his primary care physician and given azithromycin but this has not helped him. Patient does not recall any COPD exacerbation previously. Says that he did previously received chemotherapy for his lymphoma but this was 4 years ago. He does not currently follow an oncologist. 06/27: Afebrile. Cough but no hemoptysis. Breath is not foul. Chronic cavitary lesions worrisome. Await ID recommendations. Will discuss with Dr. Collins. 06/28: No sputum for C&S yet. Will need bronchoscopy and BAL. Discussed with Dr. Byrd, ID. Leukocytosis persists. 06/29: Bronchoscopy and cultures today. Continue broad abx coverage. Studies indicate protein calorie malnutrition. 06/30: No fungal elements seen on BAL micro - await cultures. Breathing comfortably. Objective Vital Signs Date Time Temp Pulse Resp B/P (MAP) Pulse Ox O2 Delivery O2 Flow Rate FiO2 06/30/17 16:00 73 06/30/17 15:47 98.3 20 144/75 (98) 96 06/30/17 10:40 Nasal Cannula 3.00 06/26/17 16:33 98 Intake and Output 06/30/17 06/30/17 07/01/17 08:00 16:00 00:00 Intake Total 400 ml 820 ml 2300 ml Output Total 1400 ml 1425 ml 1200 ml Balance -1000 ml -605 ml 1100 ml Result Diagram: 06/30/17 0510 06/30/17 0510 Imaging Last 24 hours Impressions Chest X-Ray 06/26/17 5918 Signed Impressions: Service Date/Time: Monday, June 26, 2017 14:00 - CONCLUSION: 1. Multiple primarily right-sided masslike parenchymal opacities. Differential considerations include metastatic disease versus atypical infection. Andriy Maier MD Objective Remarks GENERAL: Well-developed well-nourished, moderately labored. SKIN: Focused skin assessment warm/dry. HEAD: Atraumatic. Normocephalic. EYES: Pupils equal and round. No scleral icterus. No injection or drainage. ENT: No nasal bleeding or discharge. Mucous membranes pink and moist. NECK: Trachea midline. Airway widely patent. CARDIOVASCULAR: RRR. No murmur appreciated. No JVD. RESPIRATORY: Persistent accessory muscle use. Few rhonchi and wheezes present. Strong cough. GASTROINTESTINAL: Abdomen soft, non-tender, nondistended. No guarding. MUSCULOSKELETAL: No obvious deformities. No clubbing. No cyanosis. No edema. NEUROLOGICAL: Awake and alert. O X 3, conversant. Hard of hearing. Motor grossly within normal limits. Normal speech. A/P Assessment and Plan Respiratory failure - Atypical pneumonia - Azithromycin/Zosyn - Sputum culture, blood culture - Infectious disease consultation for atypical pneumonia with cavitary lesions - No history of hemoptysis, or contact with a TB - DuoNeb scheduled and when necessary - Bronch and cultures 06/29 COPD - DuoNeb scheduled and when necessary - Montelukast Sodium (Singulair) 10 mg HS PO - IV steroids Lymphoma - Supportive care DVT GI prophylaxis - Teds SCDs - Lovenox - Pepcid Nutrition - Appears depleted, check prealbumin -> 10 Overall impression: Acceptable gas exchange. Requiring supplemental O2. Pneumonia with necrosis. Workup in progress. Cultures pending. Jackson Ordoñez MD Jun 30, 2017 19:56
[2017-06-30] MEDS: MONTELUKAST SODIUM 10 MG TAB PO SCH (20:23)
--- NOTE | 2017-06-30 20:53 | HHI.PR ---
Subjective Remarks 77 YOWM with COPD,Nodular lung infilt,H/O Lymphoma Had Bronch Lot of thick mucous with mucous plugs removed No Mass or obst seen Breathing better Objective Vital Signs Vital Signs Date Time Temp Pulse Resp B/P (MAP) Pulse Ox O2 Delivery O2 Flow Rate FiO2 06/30/17 20:00 98.2 72 16 138/69 (92) 97 06/30/17 16:00 73 06/30/17 15:47 98.3 70 20 144/75 (98) 96 06/30/17 11:22 98.2 82 20 124/60 (81) 96 06/30/17 10:40 94 Nasal Cannula 3.00 06/30/17 08:04 98.2 75 20 121/59 (79) 94 06/30/17 04:53 98.1 82 20 154/76 (102) 94 06/30/17 04:00 52 06/30/17 00:00 71 06/29/17 23:53 98.4 81 20 140/75 (96) 99 06/29/17 21:26 95 Nasal Cannula 4.00 I/O 06/29/17 06/29/17 06/29/17 06/30/17 06/30/17 06/30/17 06:59 14:59 22:59 06:59 14:59 22:59 Intake Total 350 ml 1518 ml 400 ml 720 ml 2400 ml Output Total 900 ml 740 ml 1400 ml 1225 ml 1400 ml Balance -550 ml 778 ml -1000 ml -505 ml 1000 ml Intake Oral 350 ml 480 ml 400 ml 720 ml IV Total 1038 ml 2400 ml Output Urine Total 900 ml 740 ml 1400 ml 1225 ml 1400 ml # Bowel Movements 0 Result Diagram: 06/30/17 0510 06/30/17 0510 Objective Remarks GENERAL: Elderly male NAD SKIN: Warm and dry. HEAD: Normocephalic. EYES: No scleral icterus. No injection or drainage. NECK: Supple, trachea midline. No JVD or lymphadenopathy. CARDIOVASCULAR: Regular rate and rhythm without murmurs, gallops, or rubs. RESPIRATORY: Breath sounds equal bilaterally. No accessory muscle use. GASTROINTESTINAL: Abdomen soft, non-tender, nondistended. MUSCULOSKELETAL: No cyanosis, or edema. BACK: Nontender without obvious deformity. No CVA tenderness. A/P Assessment and Plan COPD Mucous plgging of airways Nodular lung infilt H/o Lymphoma PLAN: Check cultures Aerosol nebs Start Mucomyst Nebs Cont Abx per ID Supplement Joaquin Harris MD Jun 30, 2017 20:53
[2017-06-30] MEDS: RESP: ALBUTEROL 2.5 MG/IPRATROPIUM 0.5 MG NEB (PRN) INH (22:00)
[2017-06-30] MEDS: RESP: ACETYLCYSTEINE 10% 30 ML NEB NEB SCH (22:00)
[2017-07-01] VITALS (9 sets, daily range): BP systolic 124–155; BP diastolic 69–81; PULSE 58–80; RESP 16–26; TEMP 97.6–98.2; O2SAT 92–97
[2017-07-01] MEDS: RESP: ACETYLCYSTEINE 10% 30 ML NEB NEB SCH ×4 (03:26→21:51)
[2017-07-01] MEDS: RESP: ALBUTEROL 2.5 MG/IPRATROPIUM 0.5 MG NEB (PRN) INH ×3 (03:26→21:51)
[2017-07-01] MEDS: CHLORHEXIDINE GLUCONATE 2 % 1 PACK (2 CLOTHS) TOP SCH (03:47)
[2017-07-01] MEDS: VANCOMYCIN INJ 1,500 MG in SODIUM CHLORID 0.9% 500 ML INJ 500 ML IV SCH (04:05)
[2017-07-01] MEDS: PIPERACIL-TAZO 4.5 GM PREMIX 100 ML IV SCH ×3 (06:01→21:09)
[2017-07-01] MEDS: SODIUM CHLOR 0.9% 1000 ML INJ 1,000 ML IV SCH (06:01)
[2017-07-01] MEDS: methylPREDNISolone SOD SUCC 125 MG/2 ML VIAL IV PUSH SCH ×3 (06:01→21:01)
[2017-07-01] MEDS: CHLORHEXIDINE 0.12% (ORAL KIT) 15 ML CUP MT SCH ×2 (08:00→20:00)
[2017-07-01] MEDS: FAMOTIDINE 20 MG/2 ML VIAL IV PUSH SCH ×2 (08:16→21:01)
[2017-07-01] MEDS: MULTIVITAMIN TAB PO SCH (08:16)
[2017-07-01] MEDS: DOCUSATE SODIUM 50 MG/SENNA 8.6 MG TAB PO SCH ×2 (08:16→21:02)
--- NOTE | 2017-07-01 13:54 | HHI.CCPN ---
Subjective Remarks/Hospital Course 77-year-old male with a history of COPD, remote history of lymphoma now in remission 4 years, bronchitis presents with shortness of breath that started approximately 3 weeks ago. Patient states that last night it worsened and he decided to come to the emergency department today. States he did use his nebulizers this morning but did not have significant relief. He denies fevers, chills. Denies nausea, vomiting or diarrhea. Denies chest pain or back pain. He does not have a history of congestive heart failure or other cardiac disease although he does follow Dr. Wang annually for "a checkup". States that he was diagnosed with flu 3 weeks ago by his primary care physician and given azithromycin but this has not helped him. Patient does not recall any COPD exacerbation previously. Says that he did previously received chemotherapy for his lymphoma but this was 4 years ago. He does not currently follow an oncologist. 06/27: Afebrile. Cough but no hemoptysis. Breath is not foul. Chronic cavitary lesions worrisome. Await ID recommendations. Will discuss with Dr. Collins. 06/28: No sputum for C&S yet. Will need bronchoscopy and BAL. Discussed with Dr. Byrd, ID. Leukocytosis persists. 06/29: Bronchoscopy and cultures today. Continue broad abx coverage. Studies indicate protein calorie malnutrition. 06/30: No fungal elements seen on BAL micro - await cultures. Breathing comfortably. 07/01: Possibly Nocardia morphology - cultures pending. Afebrile. Objective Vital Signs Date Time Temp Pulse Resp B/P (MAP) Pulse Ox O2 Delivery O2 Flow Rate FiO2 07/01/17 12:00 98.0 76 22 124/71 (88) 95 07/01/17 10:23 Nasal Cannula 3.00 Intake and Output 07/01/17 07/01/17 07/02/17 08:00 16:00 00:00 Intake Total 1295 ml Output Total 2000 ml Balance -705 ml Result Diagram: 06/30/17 0510 06/30/17 0510 Imaging Last 24 hours Impressions Chest X-Ray 06/26/17 2628 Signed Impressions: Service Date/Time: Monday, June 26, 2017 14:00 - CONCLUSION: 1. Multiple primarily right-sided masslike parenchymal opacities. Differential considerations include metastatic disease versus atypical infection. Andriy Maier MD Objective Remarks GENERAL: Well-developed well-nourished, moderately labored. SKIN: Focused skin assessment warm/dry. HEAD: Atraumatic. Normocephalic. EYES: Pupils equal and round. No scleral icterus. No injection or drainage. ENT: No nasal bleeding or discharge. Mucous membranes pink and moist. NECK: Trachea midline. Airway widely patent. CARDIOVASCULAR: RRR. No murmur appreciated. No JVD. RESPIRATORY: Persistent accessory muscle use. Few rhonchi and wheezes present. Strong cough. GASTROINTESTINAL: Abdomen soft, non-tender, nondistended. No guarding. MUSCULOSKELETAL: No obvious deformities. No clubbing. No cyanosis. No edema. NEUROLOGICAL: Awake and alert. O X 3, conversant. Hard of hearing. Motor grossly within normal limits. Normal speech. A/P Assessment and Plan Respiratory failure - Atypical pneumonia - Azithromycin/Zosyn - Sputum culture, blood culture - Infectious disease consultation for atypical pneumonia with cavitary lesions - No history of hemoptysis, or contact with a TB - DuoNeb scheduled and when necessary - Bronch and cultures 06/29 COPD - DuoNeb scheduled and when necessary - Montelukast Sodium (Singulair) 10 mg HS PO - IV steroid, taper off Lymphoma - Supportive care DVT GI prophylaxis - Teds SCDs - Lovenox - Pepcid Nutrition - Appears depleted, check prealbumin -> 10 Overall impression: Acceptable gas exchange. Requiring supplemental O2. Pneumonia with necrosis. Workup in progress. Cultures pending. Morphology may be Nocardia. Jackson Ordoñez MD Jul 01, 2017 13:54
[2017-07-01] MEDS: SODIUM CHLORIDE 0.9% FLUSH 10 ML FLUSH IV FLUSH SCH ×2 (14:10→21:00)
--- NOTE | 2017-07-01 16:15 | HHI.IDPN ---
Note Infectious Disease Note ID coverage: Background. is a 77 y/o CM with PMHx of Lymphoma in remission for last 4 years, COPD , chronic pipe smoker 20 yrs. 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 He was posted as part of [employer] in [facility], [place] and [facility]. No prior known exposure to TB. With this back ground patient reports h/o shortness of breath that started approximately 3 weeks ago. Due to worsening shortness of breath patient presented to the ED at [facility] at the direction of his account support analyst . He states he did use his nebulizers on morning of admission without any significant relief. He denies fevers, chills. Denies nausea, vomiting or diarrhea. Denies chest pain or back pain. Patient reports he was diagnosed with flu 3 weeks ago by his primary care physician and given azithromycin but this has not helped him. Patient does not recall any COPD exacerbation previously. Says that he did previously received chemotherapy for his lymphoma but this was 4 years ago. He does not currently follow an oncologist but in the past has seen . Patient also reports has given him nebs and levaquin in clinic but no improvement in symptoms. He notes he has had a small pin sized cavity on CXR that was followed by . Patients last CT Chest was 6 years back and it was normal with no mention of cavities per patient. I attempted to reach will try again. ID consulted for evaluation and Mment of cavitary pneumonia. Patient sitting in chair. Says his breathing is okay. On nasal O2. No fever. Cough but not expectorating. Antibiotics Zosyn IV Vanco IV Lines Line sites with no e.o infection Allergies: Coded Allergies: No Known Allergies (Verified Allergy, Unknown, 04/02/17) OBJECTIVE: Vital Signs Date Time Temp Pulse Resp B/P (MAP) Pulse Ox O2 Delivery O2 Flow Rate FiO2 07/01/17 15:10 72 07/01/17 12:00 98.0 76 22 124/71 (88) 95 07/01/17 10:23 95 Nasal Cannula 3.00 07/01/17 08:00 98.0 67 24 130/74 (92) 95 07/01/17 04:00 97.6 58 18 140/72 (94) 97 07/01/17 04:00 62 07/01/17 03:28 Nasal Cannula 3.00 07/01/17 00:00 98.0 76 16 127/69 (88) 94 06/30/17 23:43 60 06/30/17 22:02 96 Nasal Cannula 3.00 06/30/17 20:00 66 06/30/17 20:00 Nasal Cannula 2.00 06/30/17 20:00 98.2 72 16 138/69 (92) 97 Laboratory Tests Test 06/30/17 05:10 White Blood Count 13.4 TH/MM3 Red Blood Count 4.49 MIL/MM3 Hemoglobin 13.7 GM/DL Hematocrit 41.2 % Mean Corpuscular Volume 91.9 FL Mean Corpuscular Hemoglobin 30.6 PG Mean Corpuscular Hemoglobin Concent 33.2 % Red Cell Distribution Width 13.5 % Platelet Count 397 TH/MM3 Mean Platelet Volume 9.5 FL Neutrophils (%) (Auto) 92.0 % Lymphocytes (%) (Auto) 2.6 % Monocytes (%) (Auto) 5.3 % Eosinophils (%) (Auto) 0.0 % Basophils (%) (Auto) 0.1 % Neutrophils # (Auto) 12.3 TH/MM3 Lymphocytes # (Auto) 0.3 TH/MM3 Monocytes # (Auto) 0.7 TH/MM3 Eosinophils # (Auto) 0.0 TH/MM3 Basophils # (Auto) 0.0 TH/MM3 CBC Comment DIFF FINAL Differential Comment Laboratory Tests Test 06/30/17 05:10 Blood Urea Nitrogen 15 MG/DL Creatinine 0.54 MG/DL Random Glucose 118 MG/DL Calcium Level 8.3 MG/DL Sodium Level 140 MEQ/L Potassium Level 4.0 MEQ/L Chloride Level 103 MEQ/L Carbon Dioxide Level 31.2 MEQ/L Anion Gap 6 MEQ/L Estimat Glomerular Filtration Rate 147 ML/MIN Microbiology Date/Time Source Procedure Growth Status 06/29/17 11:45 Bronchial Washings Bronchial Fungal Smear - Final NO FUNGAL ELEMENTS SEEN. Resulted 06/29/17 11:45 Bronchial Washings Bronchial Fungal Culture Pending Resulted 06/29/17 11:45 Bronchial Washings Bronchial Acid Fast Stain - Final NO ACID FAST BACILLI SEEN Resulted 06/29/17 11:45 Bronchial Washings Bronchial Mycobacterial Culture Pending Resulted 06/29/17 11:45 Bronchial Washings Bronchial Gram Stain - Final Resulted 06/29/17 11:45 Bronchial Culture - Preliminary Branching Gram Positive Frederick Resulted Imaging Last Impressions Chest X-Ray 06/29/17 0000 Signed Impressions: Service Date/Time: Thursday, June 29, 2017 12:35 - CONCLUSION: Slight improvement in the right lung infiltrates. Brock Keating Jr., MD Chest CT 06/26/17 0000 Signed Impressions: Service Date/Time: Monday, June 26, 2017 17:36 - CONCLUSION: 1. Multifocal nodular and consolidative airspace disease with some early cavitation and asymmetry, right greater than left. There is associated distal airway disease, cylindrical bronchiectasis and peribronchial thickening. Findings probably infectious in nature. Consider mycobacterial or fungal pneumonia. Kal Lowry MD Physical Exam GENERAL: Patient is in no acute distress. HEENT: EOMI, No icterus. NECK: Supple. LUNGS: Coarse bilateral breath sounds. CARDIAC: Regular rate and rhythm. No murmurs. ABDOMEN: Soft, non tender. EXTREMITIES: No clubbing, cyanosis or edema. SKIN: No rash. Assessment & Plan Remarks Cavitary pneumonia DDX: Post flu bacterial infection, atypical mycobacterial infection or fungi like aspergillus infections. Bronch washing gram stain has branching gram positive frederick. 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 Acute COPD exacerbation H/o Lymphoma in remission Recs: Stop Vanco IV (target for pneumonia 15-20) Start Bactrim PO. Dr Byrd back tomorrow to assume care. Good Davila MD Jul 01, 2017 16:15
[2017-07-01] MEDS ORDERED: PHARMACY ORDERED LAB ONE (16:45)
--- NOTE | 2017-07-01 19:05 | HHI.PR ---
Subjective Remarks 77 YOWM with COPD,Nodular lung infilt,H/O Lymphoma Had Bronch Lot of thick mucous with mucous plugs removed No Mass or obst seen Breathing better BAL Gram positive rods, ID pending Objective Vital Signs Vital Signs Date Time Temp Pulse Resp B/P (MAP) Pulse Ox O2 Delivery O2 Flow Rate FiO2 07/01/17 16:00 98.1 80 26 141/81 (101) 93 07/01/17 15:10 72 07/01/17 12:00 98.0 76 22 124/71 (88) 95 07/01/17 10:23 95 Nasal Cannula 3.00 07/01/17 08:00 98.0 67 24 130/74 (92) 95 07/01/17 04:00 97.6 58 18 140/72 (94) 97 07/01/17 04:00 62 07/01/17 03:28 Nasal Cannula 3.00 07/01/17 00:00 98.0 76 16 127/69 (88) 94 06/30/17 23:43 60 06/30/17 22:02 96 Nasal Cannula 3.00 06/30/17 20:00 66 06/30/17 20:00 Nasal Cannula 2.00 06/30/17 20:00 98.2 72 16 138/69 (92) 97 I/O 06/30/17 06/30/17 06/30/17 07/01/17 07/01/17 07/01/17 07:00 15:00 23:00 07:00 15:00 23:00 Intake Total 400 ml 720 ml 3915 ml 1295 ml 1372 ml Output Total 1400 ml 1225 ml 1400 ml 2000 ml 1550 ml Balance -1000 ml -505 ml 2515 ml -705 ml -178 ml Intake Oral 400 ml 720 ml 480 ml 600 ml IV Total 3915 ml 815 ml 772 ml Output Urine Total 1400 ml 1225 ml 1400 ml 2000 ml 1550 ml # Bowel Movements 0 0 1 Result Diagram: 06/30/17 0510 06/30/17 0510 Objective Remarks GENERAL: Elderly male NAD SKIN: Warm and dry. HEAD: Normocephalic. EYES: No scleral icterus. No injection or drainage. NECK: Supple, trachea midline. No JVD or lymphadenopathy. CARDIOVASCULAR: Regular rate and rhythm without murmurs, gallops, or rubs. RESPIRATORY: Breath sounds equal bilaterally. No accessory muscle use. GASTROINTESTINAL: Abdomen soft, non-tender, nondistended. MUSCULOSKELETAL: No cyanosis, or edema. BACK: Nontender without obvious deformity. No CVA tenderness. A/P Assessment and Plan COPD Mucous plgging of airways Nodular lung infilt H/o Lymphoma PLAN: Check cultures Aerosol nebs Start Mucomyst Nebs Cont Abx per ID Supplement 02 to keep sat >90% Joaquin Harris MD Jul 01, 2017 19:05
[2017-07-01] MEDS: SULFAMETHOXAZOLE-TRIMETHOPRIM DS 800-160 MG TAB PO SCH (21:00)
[2017-07-01] MEDS: MONTELUKAST SODIUM 10 MG TAB PO SCH (21:02)
[2017-07-02] VITALS: BP 106/64; PULSE 65; PULSE 70; RESP 17; TEMP 98.3; O2SAT 96
[2017-07-02] MEDS: PIPERACIL-TAZO 4.5 GM PREMIX 100 ML IV SCH ×2 (01:06→06:06)
[2017-07-02] MEDS: CHLORHEXIDINE GLUCONATE 2 % 1 PACK (2 CLOTHS) TOP SCH (03:54)
[2017-07-02 04:00] VITALS: BP 119/73; PULSE 70; PULSE 75; RESP 16; TEMP 98.1; O2SAT 95
[2017-07-02] MEDS: RESP: ACETYLCYSTEINE 10% 30 ML NEB NEB SCH ×2 (05:19→08:28)
[2017-07-02] MEDS: RESP: ALBUTEROL 2.5 MG/IPRATROPIUM 0.5 MG NEB (PRN) INH ×2 (05:19→08:27)
[2017-07-02 05:21] VITALS: O2SAT 92
[2017-07-02 06:02] LABS: AUTOMATED NEUTROPHIL # 11.5 TH/MM3 (1.8-7.7); BASOPHIL % 0.1 % (0.0-2.0); HEMATOCRIT 41.8 % (39.0-51.0); HEMOGLOBIN 13.8 GM/DL (13.0-17.0); LYMPH % 3.4 % (9.0-44.0); LYMPHOCYTE # 0.4 TH/MM3 (1.0-4.8); MEAN CELL VOLUME 91.1 FL (80.0-100.0); MEAN PLATELET VOLUME 9.3 FL (7.0-11.0); MONO % 6.9 % (0.0-8.0); MONOCYTE # 0.9 TH/MM3 (0-0.9); NEUT % 89.6 % (16.0-70.0); PLATELET COUNT 389 TH/MM3 (150-450); RED BLOOD COUNT 4.58 MIL/MM3 (4.50-5.90); RED CELL DISTRIBUTION WIDTH 13.3 % (11.6-17.2); WHITE BLOOD COUNT 12.9 TH/MM3 (4.0-11.0)
[2017-07-02] MEDS: SODIUM CHLOR 0.9% 1000 ML INJ 1,000 ML IV SCH ×2 (06:05→06:52)
[2017-07-02] MEDS: methylPREDNISolone SOD SUCC 125 MG/2 ML VIAL IV PUSH SCH (06:06)
[2017-07-02 06:27] LABS: CREATININE 0.51 MG/DL (0.60-1.30)
[2017-07-02 07:03] VITALS: PULSE 74
[2017-07-02 08:00] VITALS: BP 127/77; PULSE 76; RESP 24; TEMP 98; O2SAT 92
[2017-07-02] MEDS: CHLORHEXIDINE 0.12% (ORAL KIT) 15 ML CUP MT SCH (08:00)
[2017-07-02] MEDS ORDERED: SULF1TAB23 PO (08:11)
--- NOTE | 2017-07-02 08:16 | HHI.DS ---
Discharge Summary Admission Date Jun 26, 2017 at 17:10 Discharge Date: Jul 02, 2017 Admitting Diagnosis Pneumonia, sepsis, COPD exacerbation (1) Pneumonia ICD Code: J18.9 - Pneumonia, unspecified organism Status: Acute Procedures Fiberoptic bronchoscopy and BAL Brief History 77-year-old male with a history of COPD, remote history of lymphoma now in remission 4 years, bronchitis presents with shortness of breath that started approximately 3 weeks ago. Patient states that last night it worsened and he decided to come to the emergency department today. States he did use his nebulizers this morning but did not have significant relief. He denies fevers, chills. Denies nausea, vomiting or diarrhea. Denies chest pain or back pain. He does not have a history of congestive heart failure or other cardiac disease although he does follow Dr. Wang annually for "a checkup". States that he was diagnosed with flu 3 weeks ago by his primary care physician and given azithromycin but this has not helped him. Patient does not recall any COPD exacerbation previously. Says that he did previously received chemotherapy for his lymphoma but this was 4 years ago. He does not currently follow an oncologist. CBC/BMP: 07/02/17 0523 07/02/17 0523 Significant Findings Laboratory Tests Test 06/29/17 16:22 06/30/17 05:10 07/02/17 05:23 Vancomycin Level Trough 12.7 MCG/ML (5.0-10.0) White Blood Count 13.4 TH/MM3 (4.0-11.0) 12.9 TH/MM3 (4.0-11.0) Red Blood Count 4.49 MIL/MM3 (4.50-5.90) Neutrophils (%) (Auto) 92.0 % (16.0-70.0) 89.6 % (16.0-70.0) Lymphocytes (%) (Auto) 2.6 % (9.0-44.0) 3.4 % (9.0-44.0) Neutrophils # (Auto) 12.3 TH/MM3 (1.8-7.7) 11.5 TH/MM3 (1.8-7.7) Lymphocytes # (Auto) 0.3 TH/MM3 (1.0-4.8) 0.4 TH/MM3 (1.0-4.8) Creatinine 0.54 MG/DL (0.60-1.30) 0.51 MG/DL (0.60-1.30) Random Glucose 118 MG/DL (74-106) Calcium Level 8.3 MG/DL (8.5-10.1) Imaging CT Chest CXR PE at Discharge Improved. Breathing comfortably Transfer Summary Morphology of BAL specimen from regions of lung infection is gram positive rods , branching type. 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 Seen by Dr. Harris for bronch and BAL and Dr. Eliza Byrd for Infectious Disease recommendations. Converted to Bactrim. Afebrile at discharge, breathing comfortably. Hospital Course 77-year-old male with a history of COPD, remote history of lymphoma now in remission 4 years, bronchitis presents with shortness of breath that started approximately 3 weeks ago. Patient states that last night it worsened and he decided to come to the emergency department today. States he did use his nebulizers this morning but did not have significant relief. He denies fevers, chills. Denies nausea, vomiting or diarrhea. Denies chest pain or back pain. He does not have a history of congestive heart failure or other cardiac disease although he does follow Dr. Wang annually for "a checkup". States that he was diagnosed with flu 3 weeks ago by his primary care physician and given azithromycin but this has not helped him. Patient does not recall any COPD exacerbation previously. Says that he did previously received chemotherapy for his lymphoma but this was 4 years ago. He does not currently follow an oncologist. 06/27: Afebrile. Cough but no hemoptysis. Breath is not foul. Chronic cavitary lesions worrisome. Await ID recommendations. Will discuss with Dr. Collins. 06/28: No sputum for C&S yet. Will need bronchoscopy and BAL. Discussed with Dr. Byrd, ID. Leukocytosis persists. 06/29: Bronchoscopy and cultures today. Continue broad abx coverage. Studies indicate protein calorie malnutrition. 06/30: No fungal elements seen on BAL micro - await cultures. Breathing comfortably. 07/01: Possibly Nocardia morphology - cultures pending. Afebrile. Pt Condition on Discharge: Good Discharge Disposition: Discharge Home Discharge Instructions DIET: Follow Instructions for: As Tolerated, No Restrictions Activities you can perform: Weight Bearing as Jackson Watkins MD Jul 02, 2017 08:16
[2017-07-02] MEDS ORDERED: FLAXSEED PO SCH (09:00)
[2017-07-02] MEDS: SODIUM CHLORIDE 0.9% FLUSH 10 ML FLUSH IV FLUSH SCH (09:22)
[2017-07-02] MEDS: FAMOTIDINE 20 MG/2 ML VIAL IV PUSH SCH (09:22)
[2017-07-02] MEDS: SULFAMETHOXAZOLE-TRIMETHOPRIM DS 800-160 MG TAB PO SCH (09:22)
[2017-07-02] MEDS: MULTIVITAMIN TAB PO SCH (09:22)
[2017-07-02] MEDS: DOCUSATE SODIUM 50 MG/SENNA 8.6 MG TAB PO SCH (09:22)
--- NOTE | 2017-07-02 09:27 | HHI.PR ---
Addendum to Inpatient Note Addendum Reason: Additional Documentation Additional Information d/w : Clinically doing well. Tolerated bactrim Needs PCP, ID and Pulm outpt follow up. Ok to be discharged home. Dr.Reba Nogueira notified to follow up patient in [address]Reba Nogueira Will sign off please call back if any change in clinical condition or questions. Eliza Byrd MD Jul 02, 2017 09:27
[2017-07-02 12:00] VITALS: BP 119/71; PULSE 81; RESP 27; TEMP 98; O2SAT 92
--- NOTE | 2017-07-02 14:37 | HHI.PR ---
Subjective Remarks 77 YOWM with COPD,Nodular lung infilt,H/O Lymphoma Had Bronch Lot of thick mucous with mucous plugs removed No Mass or obst seen Breathing better BAL Gram positive rods, branching pattern Objective Vital Signs Vital Signs Date Time Temp Pulse Resp B/P (MAP) Pulse Ox O2 Delivery O2 Flow Rate FiO2 07/02/17 12:00 98.0 81 27 119/71 (87) 92 07/02/17 08:45 Room Air 07/02/17 08:00 98.0 76 24 127/77 (94) 92 07/02/17 07:03 74 07/02/17 05:21 92 Nasal Cannula 3.00 07/02/17 04:00 75 07/02/17 04:00 98.1 70 16 119/73 (88) 95 07/02/17 00:00 70 07/02/17 00:00 98.3 65 17 106/64 (78) 96 07/01/17 21:54 92 Nasal Cannula 3.00 07/01/17 20:00 98.2 79 18 155/77 (103) 94 07/01/17 20:00 60 07/01/17 20:00 Room Air 07/01/17 16:00 98.1 80 26 141/81 (101) 93 07/01/17 15:10 72 I/O 07/01/17 07/01/17 07/01/17 07/02/17 07/02/17 07/02/17 07:00 15:00 23:00 07:00 15:00 23:00 Intake Total 1295 ml 1472 ml 940 ml 360 ml Output Total 2000 ml 1550 ml 2125 ml 975 ml Balance -705 ml -78 ml -1185 ml -615 ml Intake Oral 480 ml 600 ml 840 ml 360 ml IV Total 815 ml 872 ml 100 ml Output Urine Total 2000 ml 1550 ml 2125 ml 975 ml # Bowel Movements 0 1 Result Diagram: 07/02/1752207/02/17522 Objective Remarks GENERAL: Elderly male NAD SKIN: Warm and dry. HEAD: Normocephalic. EYES: No scleral icterus. No injection or drainage. NECK: Supple, trachea midline. No JVD or lymphadenopathy. CARDIOVASCULAR: Regular rate and rhythm without murmurs, gallops, or rubs. RESPIRATORY: Breath sounds equal bilaterally. No accessory muscle use. GASTROINTESTINAL: Abdomen soft, non-tender, nondistended. MUSCULOSKELETAL: No cyanosis, or edema. BACK: Nontender without obvious deformity. No CVA tenderness. A/P Assessment and Plan COPD Mucous plgging of airways Nodular lung infilt H/o Lymphoma PLAN: Check cultures Aerosol nebs Cont Abx per ID Supplement 02 to keep sat >90% DC Plans for home Will FU in office Joaquin Harris MD Jul 02, 2017 14:37
== END 2017-07-02 13:00 | disposition home or self-care (01) | DRG 177 ==
LOC: NEPC 13:19 → NEDA 17:10 → NEDH 21:10 → N03B 06-27 04:41
PROVIDERS: ADMIT Internal Medicine; ATTEND Internal Medicine
PROC: 0BC18ZZ Extirpation of Matter from Trachea, Via Natural or Artificial Opening Endoscopic (ICD-10-PCS; principal; 2017-06-29)
PROC: 0BCB8ZZ Extirpation of Matter from Left Lower Lobe Bronchus, Via Natural or Artificial Opening Endoscopic (ICD-10-PCS; 2017-06-29)
PROC: 0BC48ZZ Extirpation of Matter from Right Upper Lobe Bronchus, Via Natural or Artificial Opening Endoscopic (ICD-10-PCS; 2017-06-29)
PROC: 0BC88ZZ Extirpation of Matter from Left Upper Lobe Bronchus, Via Natural or Artificial Opening Endoscopic (ICD-10-PCS; 2017-06-29)
PROC: 0BC58ZZ Extirpation of Matter from Right Middle Lobe Bronchus, Via Natural or Artificial Opening Endoscopic (ICD-10-PCS; 2017-06-29)
PROC: 0BC68ZZ Extirpation of Matter from Right Lower Lobe Bronchus, Via Natural or Artificial Opening Endoscopic (ICD-10-PCS; 2017-06-29)
DX: A43.0 Pulmonary nocardiosis (principal); J96.90 Respiratory failure, unspecified, unspecified whether with hypoxia or hypercapnia; E46 Unspecified protein-calorie malnutrition; J47.0 Bronchiectasis with acute lower respiratory infection; J47.1 Bronchiectasis with (acute) exacerbation; E87.5 Hyperkalemia; N40.0 Benign prostatic hyperplasia without lower urinary tract symptoms; R00.0 Tachycardia, unspecified; J98.09 Other diseases of bronchus, not elsewhere classified; Z68.23 Body mass index [BMI] 23.0-23.9, adult; Z72.0 Tobacco use; Z85.72 Personal history of non-Hodgkin lymphomas; Z90.81 Acquired absence of spleen; Z92.21 Personal history of antineoplastic chemotherapy
CPT/HCPCS: 31622; 36600; 71045; 71046; 71260; 80048; 80053; 80202; 82550; 82565; 82805; 83605; 83735; 83880; 84100; 84134; 84484; 85007; 85025; 85027; 85610; 85730; 87015; 87040; 87070; 87102; 87116; 87205; 87206; 88112; 88305; 88312; 93005; 94640; 94664; 96365; 96375; J0456; J0692; J1650; J2543; J2930; J3010; J3370; J7030; J7040; J7050; J7608; J7613; Q9967